=== PATIENT | male | born 1975 | race Caucasian/White ===

== ENCOUNTER 2016-06-24 22:12 | Inpatient (IN) ==
[2016-06-24] MEDS ORDERED: Nitroglycerin 1 INCH/GM PACKET TP SCH (23:45)
[2016-06-24] MEDS ORDERED: *HR* Heparin 5,000 UNIT/ML VIAL IVP ONE (23:47)
[2016-06-24] MEDS ORDERED: *HR* Heparin 5,000 UNIT/ML VIAL IVP PRN (23:47)
[2016-06-24] MEDS ORDERED: Naloxone 0.4 MG/ML INJ IVP PRN (23:47)
[2016-06-24] MEDS ORDERED: Ondansetron 4 MG/2 ML VIAL IVP PRN (23:47)
[2016-06-24] MEDS ORDERED: *HR* Morphine 2 MG/ML SYRINGE IVP PRN (23:47)
[2016-06-24] MEDS ORDERED: Acetaminophen 325 MG TABLET PO PRN (23:47)
[2016-06-25] MEDS: *HR* Metoprolol 5 MG/5 ML VIAL IVP SCH ×4 (00:07→17:15)
[2016-06-25] MEDS: 0.9 % Sodium Chloride 1,000 ML IVC SCH ×2 (00:07→11:26)
[2016-06-25] MEDS: Heparin 25,000 UNIT/500 ML D5W 25,000 UNIT/500 ML MLS IVC SCH (00:13)
[2016-06-25 01:04] LABS: Basophils # 0.1 K/mcL (0.0-0.2); Basophils % 1.1 %; Eosinophils # 0.2 K/mcL (0.0-0.6); Eosinophils % 2.2 %; Hematocrit 46.7 % (37.5-50.1); Hemoglobin 16.9 g/dL (12.9-16.9); Immature Granulocytes % 0.2 % (0-4); Lymphocytes % 29.1 %; Mean Corpuscular HGB Conc 36.2 g/dL (31.6-35.5); Mean Corpuscular Hemoglobin 33.7 pg (28.0-33.3); Mean Corpuscular Volume 93.2 fL (83.0-100.0); Mean Platelet Volume 10.7 fL (9.4-12.4); Monocytes # 0.5 K/mcL (0.0-1.3); Monocytes % 4.9 %; Neutrophils # 6.4 K/mcL (1.6-8.9); Platelet Count 183 K/mcL (140-400); Red Blood Count 5.01 M/mcL (4.19-5.50); Red Cell Distribution Width 11.8 % (11.5-14.5); Segmented Neutrophils % 62.5 %
[2016-06-25 01:10] LABS: INR 1.1; Prothrombin Time 11.4 Seconds (9.4-12.1)
[2016-06-25 01:18] LABS: BUN/Creatinine Ratio 8 (6-26); Blood Urea Nitrogen 6 mg/dL (8-26); Carbon Dioxide 22 mEq/L (19-29); Chloride 105 mEq/L (98-109); Glucose 153 mg/dL (70-99); Potassium 4.5 mEq/L (3.5-4.5); Sodium 139 mEq/L (136-145); eGFR For African Americans > 60 (> 60); eGFR For Non-African Americans > 60 (> 60)
[2016-06-25 01:19] LABS: Calcium 9.3 mg/dL (8.6-10.8); Magnesium 2.4 mg/dL (1.6-2.6); Osmolality,Calculated 289 (280-300)
[2016-06-25 01:27] LABS: Activated Partial Thrombo Time 141.7 Seconds (26.0-36.0)
[2016-06-25 02:02] LABS: Heparin anti-factor XA UFH 1.23 IU/mL (0.30-0.70)
--- NOTE | 2016-06-25 03:20 | Internal Med History&Physical ---
Date of Encounter: 06/25/16 Time of Encounter: 01:00 Assessment and Plan (1) Diabetes mellitus type II, non insulin dependent Current visit: Yes Status: Acute Insulin sliding scale. Fingersticks 4 times daily. Check hemoglobin A1c. Diabetic diet. (2) HTN (hypertension) Current visit: No Status: Acute We will treat him with IV metoprolol. Add HCTZ prior to discharge. Qualifiers: Hypertension type: essential hypertension Qualified Code(s): I10 - Essential (primary) hypertension (3) Non-STEMI (non-ST elevated myocardial infarction) Current visit: No Status: Acute Start heparin drip. 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 Repeat EKG. Order echocardiogram. Consult cardiology. Patient will be nothing by mouth for cardiac catheterization tomorrow. He is in a critical condition due to acute myocardial infarction threatening to cause sudden and significant impairment and circulatory function. I have performed 35 minutes of critical care which involved complex medical decision making to support and manipulate organ system function and prevent any further decline in respiratory and cardiovascular function. Critical care time excluding procedures and including evaluating the patient at bedside, ordering medications reevaluating patient after medication administration, reviewing the patient's medical records from outside facilities and ordering additional studies and consultations. (4) Tobacco abuse disorder Current visit: Yes Status: Acute I have advised smoking cessation. (5) DVT prophylaxis Current visit: Yes Status: Acute He is currently fully anticoagulated with IV heparin and does not require an additional prophylaxis at this time. Internal Medicine - H&P: HPI Chief complaint: chest pain Admitted From: Intrahospital Transfer Plans for Post Hospital Care: Home History of present illness: Mr. Perez is a 41 year old male with past medical history significant for hypertension and diabetes who presented to the hospital due to chest pain. He states that chest pain started early this morning at 8 AM while he was at rest. The pain was substernal graded as 8/10, pressure-like, the pain lasted for several hours. Denies any aggravating or alleviating factors. Denies any associated shortness of breath diaphoresis nausea or vomiting. He presented to [place] emergency department where he was given nitroglycerin and aspirin in pain subsided, currently 3/10. Initial troponin at [place] was 2.61. He was transferred to our hospital for further workup. A 10 point review of systems was negative except as above. Family history patient's father suffered with bladder cancer, patient's mother suffered with hypertension diabetes and heart disease Social history the patient is on Social Security. She smokes 2 packs of cigarettes a day and has smoked for the last 29 years. He drinks alcohol 2-3 times a month. Denies recreational drug use. Past Med Surg Social Fam HX - Past Medical History Medical history: diabetes, GERD, hyperlipidemia, hypertension, other Psychiatric history: no psych history - Social History Smoking Status: Current every day smoker Packs per day: 2 Alcohol use: occasionally Drug use: none - Family History Father Living Status: Hx Family Cancer: Yes (Bladder) Mother Living Status: Hx Family Cardiac Disorders: Yes Hx Family Endocrine Disorder: Yes Internal Medicine - H&P: Meds No Known Home Drugs 06/24/16 [History] Allergies No Known Allergies Allergy (Verified 06/24/16 20:35) All Systems PM: A 10-system review of systems was performed and is negative for pertinent findings except as documented above in the HPI. - Constitutional Vitals: Pulse Resp BP Pulse Ox 95 17 145/103 96 06/24/16 23:53 06/24/16 23:53 06/24/16 23:53 06/24/16 23:53 General appearance: Present: A&O X 3, no acute distress - Head Head exam: Present: atraumatic, normocephalic - Eye Eye exam: Present: PERRL, conjuntiva pink, sclera anicteric Pupils: Present: PERRL - Respiratory Respiratory exam: Present: CTAB. Absent: accessory muscle use, rales, rhonchi, wheezes - Cardiovascular Cardiovascular exam: Present: RRR, +S1, +S2. Absent: diastolic murmur, gallop, rubs, systolic murmur - GI/Abdominal GI/Abdominal exam: Present: normal bowel sounds, soft, no peritoneal signs. Absent: distended, tenderness - Extremities Exam Extremities exam: Present: warm, radial pulses palpable and symetrical. Absent : calf tenderness, cyanotic, pedal edema - Neurological Exam Neurological exam: Present: CN II-XII intact, oriented X3, no focal deficits. Absent: pronater drift, facial droop, speech deficit - Skin Skin exam: Present: dry, intact Internal Med - H&P Results - Labs CBC & Chem 7: 06/25/16 00:56 12/25/16 00:56 Labs: Short CBC 06/25/16 Range/Units 00:56 WBC 10.2 (4.3-11.1) K/mcL Hgb 16.9 (12.9-16.9) g/dL Hct 46.7 (37.5-50.1) % Plt Count 183 (140-400) K/mcL Neutrophils # 6.4 (1.6-8.9) K/mcL BMP 06/25/16 00:56 Sodium 139 Potassium 4.5 Chloride 105 Carbon Dioxide 22 BUN 6 L Creatinine 0.78 Glucose 153 H Calcium 9.3 Cardiac Enzymes 06/25/16 Range/Units 00:56 Troponin I 7.50 H* (0-0.03) ng/mL - EKG Data -: EKG Interpreted by Myself - EKG Data EKG comments: 06/25/16 03:21 EKG interpreted by myself shows normal sinus rhythm 74 bpm Q waves in leads 2, 3 and aVF consistent Old lacunar MRI. No ST or T-wave changes. Initial EKG from [facility] showed sinus tachycardia 1 14 bpm with similar Q waves in 2, 3 and aVF and flat T waves. - Impressions Chest x-ray from outside hospital shows no infiltrate effusion or vascular congestion. - VTE Reasons for not Prescribing Prophylaxis: Not indicated-Anticoagulated or INR therapeutic
[2016-06-25] MEDS ORDERED: Dextrose Gel 15 GM PO PRN ×2 (03:31)
[2016-06-25] MEDS ORDERED: D5% in Water 1,000 ML IV PRN (03:31)
[2016-06-25] MEDS ORDERED: *HR* Dextrose 50 % in Water (Syg) 50 ML SYRINGE IVP PRN (03:31)
[2016-06-25] MEDS: Insulin LISPRO 300 UNITS/3 ML VIAL SQ SCH ×3 (05:32→18:22)
[2016-06-25 06:49] LABS: Hemoglobin A1C 7.1 %
[2016-06-25] MEDS: *HR* Heparin 5,000 UNIT/ML VIAL IVP PRN ×2 (06:50→20:32)
[2016-06-25 06:55] LABS: BUN/Creatinine Ratio 8 (6-26); Blood Urea Nitrogen 6 mg/dL (8-26); Calcium 9.2 mg/dL (8.6-10.8); Carbon Dioxide 21 mEq/L (19-29); Chloride 106 mEq/L (98-109); Glucose 125 mg/dL (70-99); Magnesium 2.1 mg/dL (1.6-2.6); Osmolality,Calculated 289 (280-300); Potassium 4.1 mEq/L (3.5-4.5); Sodium 140 mEq/L (136-145); eGFR For African Americans > 60 (> 60); eGFR For Non-African Americans > 60 (> 60)
[2016-06-25 06:56] LABS: Albumin 3.9 g/dL (3.5-5.0); Albumin/Globulin Ratio 1.4 (1.1-2.2); Bilirubin,Direct 0.2 mg/dL (0.0-0.5); Bilirubin,Indirect 0.5 mg/dL (0.0-1.2); Bilirubin,Total 0.7 mg/dL (0.2-1.2); Globulin 2.8 g/dL (2.4-3.5); Total Protein 6.7 g/dL (6.0-8.3)
[2016-06-25 06:57] LABS: Chol/HDL Ratio 5.4 (0-4.9)
[2016-06-25 07:18] LABS: Thyroid Stimulating Hormone 0.597 mcIU/mL (0.350-4.840)
--- NOTE | 2016-06-25 08:05 | Cardiology Consult Note ---
Date of Encounter: 06/25/16 Time of Encounter: 07:00 Assessment and Plan (1) Non-STEMI (non-ST elevated myocardial infarction) Current Visit: Yes Status: Acute Per Cardiology: Troponin 2.61, 7.50, 9.06. Ischemic ECG changes. Chest pain free upon exam. Continue heparin gtt. Change asa to 81, change zocor to atorvastatin; start betablocker. Start brilinta 90 mg BID. Check echocardiogram. Recommend [facility]; alternatives, risks, and benefits discussed--patient agreeable to proceed. Will further discuss/review with Dr. Ng. (2) HTN (hypertension) Current Visit: Yes Status: Chronic Add betablocker for improved BP control. Continue ARB. Qualifiers: Hypertension type: essential hypertension Qualified Code(s): I10 - Essential (primary) hypertension (3) Tobacco abuse disorder Current Visit: Yes Status: Chronic Smoking cessation counseling provided. Discussion w patient/family: The assessment and plan as outlined above was discussed with the patient and/or family members who expressed understanding and agreement. All questions were answered. Thank you for involving us in the care of your patient. Please call with any questions. The patient will be discussed and reviewed with Dr. Ng; changes to be made accordingly. History of Present Illness Consult date: 06/25/16 Requesting physician: Gabe Rucker Consult reason: NSTEMI Chief complaint: Chest pressure History of present illness: Mr. Perez is a 41 year old male with PMH significant for DMII, HTN, HLD, and tobacco use who presented to [place] ED with complaints of chest pressure that started around 3:30 AM on 06/24/16. Reports chest pressure/heaviness woke up him from sleep, radiated across chest and through his back, pain lasted until he was given medication at the ED. Reports exertional chest pain for at least the last 6 months, improved/resolved with rest. Upon exam, he is chest pain free. Reports premature CAD in his mother. Past Med Surg Social Fam HX - Past Medical History Medical history: diabetes, GERD, hyperlipidemia, hypertension, other Psychiatric history: no psych history - Social History Smoking Status: Current every day smoker Packs per day: 2 Alcohol use: occasionally Drug use: none - Family History Father Living Status: Hx Family Cancer: Yes (Bladder) Mother Living Status: Still Living Hx Family Cardiac Disorders: Yes Hx Family Endocrine Disorder: Yes Medications and Allergies No Known Home Drugs 06/24/16 [History] Allergies No Known Allergies Allergy (Verified 06/24/16 20:35) All Systems Review: A 10-system review of systems was performed and is negative for pertinent findings except as documented above in the HPI. - Cardiovascular Cardiovascular: as per HPI Physical Examination Vital Signs, Last 4 Hours Temp Pulse Resp BP Pulse Ox 06/25/16 07:00 98.1 F 77 17 144/104 94 L General: Conversant, No Apparent Distress HEENT: Atraumatic, Normocephaly, Mucus Membranes Moist Neck: No JVD Cardiac: Reg Rate and Rhythm, Normal S1 and S2 Lungs: Other (Wheezes throughout) Neuro: Alert and responsive, No focal deficits noted Abdomen: Soft Skin: No rashes noted on visualized skin Musculoskeletal: No Chest Wall Tenderness Extremities: No Edema, Normal Pulses Results 06/25/16 00:56 06/25/16 05:50 Lab Results 06/25/16 06/25/16 06/25/16 00:56 00:56 00:56 WBC 10.2 Hgb 16.9 Hct 46.7 Plt Count 183 INR APTT Sodium 139 Potassium 4.5 Chloride 105 Carbon Dioxide 22 BUN 6 L Creatinine 0.78 Glucose 153 H Calcium 9.3 Magnesium 2.4 Total Bilirubin AST ALT Alkaline Phosphatase Troponin I B-Natriuretic Peptide 143 H TSH 06/25/16 06/25/16 06/25/16 00:56 00:56 05:50 WBC Hgb Hct Plt Count INR 1.1 APTT 141.7 H* D Sodium 140 Potassium 4.1 Chloride 106 Carbon Dioxide 21 BUN 6 L Creatinine 0.73 Glucose 125 H Calcium 9.2 Magnesium 2.1 Total Bilirubin AST ALT Alkaline Phosphatase Troponin I 7.50 H* B-Natriuretic Peptide TSH 06/25/16 06/25/16 06/25/16 05:50 05:50 05:50 WBC Hgb Hct Plt Count INR APTT 50.3 H D Sodium Potassium Chloride Carbon Dioxide BUN Creatinine Glucose Calcium Magnesium Total Bilirubin AST ALT Alkaline Phosphatase Troponin I 9.06 H* B-Natriuretic Peptide TSH 0.597 06/25/16 05:50 WBC Hgb Hct Plt Count INR APTT Sodium Potassium Chloride Carbon Dioxide BUN Creatinine Glucose Calcium Magnesium Total Bilirubin 0.7 AST 51 H ALT 24 Alkaline Phosphatase 97 Troponin I B-Natriuretic Peptide TSH Active Medications Acetaminophen (Tylenol) 650 mg PO Q6HR PRN PRN Reason: Mild Pain (1-3) Stop: 12/24/16 23:48 Aspirin (Aspirin) 162 mg PO DAILY ISAC Stop: 12/25/16 09:01 Last Admin: 06/25/16 08:01 Dose: 162 mg Dextrose/Water (Dextrose 50% (Syg)) 25 ml IVP AD PRN PRN Reason: Hypoglycemia Stop: 12/25/16 03:32 Heparin Sodium (Porcine) (Heparin) 4,000 unit IVP Q6HR PRN PRN Reason: SEE COMMENTS Stop: 12/24/16 23:48 Heparin Sodium (Porcine) (Heparin) 2,000 unit IVP Q6H PRN PRN Reason: SEE COMMENTS Stop: 12/24/16 23:48 Last Admin: 06/25/16 06:50 Dose: 2,000 unit Sodium Chloride (0.9 % Sodium Chloride) 1,000 mls @ 75 mls/hr IVC .[id number] ISAC Stop: 12/24/16 23:46 Last Admin: 06/25/16 00:07 Dose: 75 mls/hr Heparin Sodium/Dextrose (Heparin 25,000 Unit/500 Ml D5w) 25,000 unit in 500 mls @ 19.947 mls/hr IVC .Q24H ISAC; 10.9 UNIT/KG/HR PRN Reason: Protocol Stop: 12/24/16 23:46 Last Titration: 06/25/16 06:51 Dose: 9.78 unit/kg/hr, 17.9 mls/hr Dextrose (Dextrose 5%) 1,000 mls @ 100 mls/hr IV CONT PRN PRN Reason: HYPOGLYCEMIA Stop: 12/25/16 03:32 Insulin Human Lispro (Humalog) 0 units SQ Q6HR ISAC PRN Reason: Protocol Stop: 12/25/16 06:01 Last Admin: 06/25/16 05:32 Dose: Not Given Losartan Potassium (Cozaar) 50 mg PO DAILY ISAC PRN Reason: Protocol Stop: 12/25/16 09:01 Last Admin: 06/25/16 08:01 Dose: 50 mg Metoprolol Tartrate (Lopressor) 2.5 mg IVP Q6HR ISAC Stop: 12/25/16 00:01 Last Admin: 06/25/16 05:31 Dose: 2.5 mg Morphine Sulfate (Morphine Sulfate) 2 mg IVP Q4HR PRN PRN Reason: Severe Pain (7-10) Stop: 12/24/16 23:48 Naloxone HCl (Narcan) 0.4 mg IVP Q2MIN PRN PRN Reason: Opioid Reversal Stop: 12/24/16 23:48 Nitroglycerin (Nitroglycerin) 1 inch TP Q6HNTG ISAC Stop: 12/24/16 23:46 Ondansetron HCl (Zofran) 4 mg IVP Q8HR PRN PRN Reason: Nausea And Vomiting Stop: 12/24/16 23:48 Simvastatin (Zocor) 40 mg PO HS ISAC Stop: 12/25/16 21:01 - Imaging and Cardiology Echo: pending Other Results: 12 hour tele: avg HR=77 SR, no significant event noted. - EKG Interpretation EKG results cardiology: personally reviewed Consult Discharge Plan - Plan Referrals: Jorge Chaidez DO [Primary Care Provider] -
[2016-06-25 08:23] LABS: Basophils # 0.1 K/mcL (0.0-0.2); Basophils % 1.1 %; Eosinophils # 0.3 K/mcL (0.0-0.6); Eosinophils % 2.7 %; Hematocrit 45.2 % (37.5-50.1); Hemoglobin 16.2 g/dL (12.9-16.9); Immature Granulocytes % 0.2 % (0-4); Immature Platelets 6.9 % (1.1-6.1); Lymphocytes # 3.4 K/mcL (0.6-4.6); Lymphocytes % 35.7 %; Mean Corpuscular HGB Conc 35.8 g/dL (31.6-35.5); Mean Corpuscular Hemoglobin 33.5 pg (28.0-33.3); Mean Corpuscular Volume 93.6 fL (83.0-100.0); Mean Platelet Volume 11.2 fL (9.4-12.4); Monocytes # 0.6 K/mcL (0.0-1.3); Monocytes % 6.4 %; Neutrophils # 5.1 K/mcL (1.6-8.9); Platelet Count 164 K/mcL (140-400); Red Blood Count 4.83 M/mcL (4.19-5.50); Red Cell Distribution Width 11.8 % (11.5-14.5); Segmented Neutrophils % 53.9 %
[2016-06-25] MEDS ORDERED: Aspirin 81 MG TAB.CHEW PO SCH (09:00)
[2016-06-25] MEDS: *HR* Ticagrelor 90 MG TABLET PO SCH ×2 (11:26→20:24)
--- NOTE | 2016-06-25 11:31 | Event Note ---
Date of Encounter: 06/25/16 Time of Encounter: 11:21 41/M Brief PMH: Type 2 diabetes mellitus, hypertension, dyslipidemia, chronic tobacco smoker, mild obesity. Chief complaint: Chest pain present for less than 24 hours duration. 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 It was a pressure-like pain which lasted for several hours. Patient was complaining for off and on pain since this summer. Patient denies any nausea, vomiting, abdominal pain, diarrhea or any bloating sensation. Patient was evaluated at [facility] emergency room. It was noted that patient's troponin was 2.61 and that was the reason he was transferred to this hospital for further evaluation. At the time of examination patient is chest pain-free. Vitals: 98.1, 77/m,139/84, 97% on 2 L off and on nasal oxygen. On examination: I have examined this patient at bedside. Examination of his eyes, ears, oral cavity, cervical area does not show any abnormality. Examination of the lungs are benign. His heart rate is in 70s. I did not hear any gallop, rub or murmur. Examination of the abdomen is benign. 4 extremities examination is within normal limit. Patient is alert oriented 3. Brief neurological examination was within normal limit. I do not find any bruise or breakdown of the skin. Assessment and plan: Non-ST elevation myocardial infarction: -ASA -Beta mauricio -Brilinta -Statin. -ARB -Patient was evaluated by cardiology and he will be scheduled for left heart catheterization tomorrow in the morning. -Patient will be nothing by mouth from midnight. Diabetes mellitus: -We will manage his diabetes with the help of insulin. Hypertension: -We will continue present hypertensive therapy from home at this point. Rectal decision making: Patient is at risk of worsening cardiac function in spite of being on appropriate medication.
[2016-06-26] MEDS: 0.9 % Sodium Chloride 1,000 ML IVC SCH ×2 (00:48→17:57)
[2016-06-26] MEDS: Heparin 25,000 UNIT/500 ML D5W 25,000 UNIT/500 ML MLS IVC SCH ×2 (00:50→21:00)
[2016-06-26] MEDS: *HR* Metoprolol 5 MG/5 ML VIAL IVP SCH ×4 (00:53→17:58)
[2016-06-26] MEDS: Insulin LISPRO 300 UNITS/3 ML VIAL SQ SCH ×5 (00:53→21:01)
[2016-06-26 01:34] LABS: Basophils # 0.1 K/mcL (0.0-0.2); Basophils % 0.9 %; Eosinophils # 0.3 K/mcL (0.0-0.6); Eosinophils % 3.8 %; Hematocrit 43.7 % (37.5-50.1); Hemoglobin 15.7 g/dL (12.9-16.9); Immature Granulocytes % 0.1 % (0-4); Immature Platelets 6.3 % (1.1-6.1); Lymphocytes # 2.8 K/mcL (0.6-4.6); Lymphocytes % 40.1 %; Mean Corpuscular HGB Conc 35.9 g/dL (31.6-35.5); Mean Corpuscular Hemoglobin 33.8 pg (28.0-33.3); Mean Platelet Volume 10.8 fL (9.4-12.4); Monocytes # 0.4 K/mcL (0.0-1.3); Monocytes % 5.1 %; Neutrophils # 3.4 K/mcL (1.6-8.9); Platelet Count 158 K/mcL (140-400); Red Blood Count 4.65 M/mcL (4.19-5.50); Red Cell Distribution Width 11.8 % (11.5-14.5)
[2016-06-26 01:46] LABS: Alanine Aminotransferase 19 Units/L (0-55); Albumin 3.4 g/dL (3.5-5.0); Albumin/Globulin Ratio 1.3 (1.1-2.2); Alkaline Phosphatase 83 Units/L (38-126); Aspartate Amino Transferase 23 Units/L (5-34); BUN/Creatinine Ratio 9 (6-26); Bilirubin,Total 0.9 mg/dL (0.2-1.2); Blood Urea Nitrogen 7 mg/dL (8-26); Carbon Dioxide 22 mEq/L (19-29); Chloride 109 mEq/L (98-109); Globulin 2.7 g/dL (2.4-3.5); Glucose 142 mg/dL (70-99); Osmolality,Calculated 286 (280-300); Potassium 4.1 mEq/L (3.5-4.5); Sodium 138 mEq/L (136-145); Total Protein 6.1 g/dL (6.0-8.3); eGFR For African Americans > 60 (> 60); eGFR For Non-African Americans > 60 (> 60)
[2016-06-26] MEDS: *HR* Heparin 5,000 UNIT/ML VIAL IVP PRN ×2 (03:33→15:47)
[2016-06-26] MEDS ORDERED: Verapamil 5 MG/2 ML VIAL ONE (08:43)
[2016-06-26] MEDS ORDERED: 0.9 % Sodium Chloride 1,000 ML ONE ×2 (08:43→09:57)
[2016-06-26] MEDS ORDERED: Nitroglycerin 1,000 MCG/10 ML VIAL IV ONE (08:43)
[2016-06-26] MEDS ORDERED: *HR* Heparin 10,000 UNIT/10 ML VIAL ONE (08:43)
[2016-06-26] MEDS ORDERED: Heparin 1,000 UNITS/500 mL NS 500 ML ONE (08:43)
--- NOTE | 2016-06-26 09:02 | Internal Med Progress Note ---
<Leonel Jarvis - Last Filed: 06/26/16 09:00> Date of Encounter: 06/26/16 Time of Encounter: 08:35 - Assessment and plan (1) Non-STEMI (non-ST elevated myocardial infarction) Current Visit: Yes Status: Acute Assessment and plan: Troponin 2.61, 7.50, 9.06. [facility] today aroud noon time. patient without angina. cardiology for recommendations ongoing aspirin, brillinta, heparin gtt, NTG. (2) Diabetes mellitus type II, non insulin dependent Current Visit: Yes Status: Acute Assessment and plan: bs good. holding ssi (3) HTN (hypertension) Current Visit: Yes Status: Chronic Assessment and plan: betablocker and arb Qualifiers: Hypertension type: essential hypertension Qualified Code(s): I10 - Essential (primary) hypertension (4) Tobacco abuse disorder Current Visit: Yes Status: Chronic Assessment and plan: smoking cessation counseling provided. patient amenable to nicotine patches. (5) DVT prophylaxis Current Visit: Yes Status: Acute Assessment and plan: heparin gtt - Time Spent With Patient 25 - 35 minutes - Subjective Interval history: patient denies chest pains, shortness of breath. has resolved since he came in on sunday evening. denies f/n/v/d/chills. ready for heart cath today. - Constitutional Vitals: Temp Pulse Resp BP Pulse Ox 98.4 F 73 17 142/113 93 L 06/26/16 06:51 06/26/16 06:51 06/26/16 06:51 06/26/16 06:51 06/26/16 06:51 General appearance: Present: A&O X 3, no acute distress - Head Head exam: Present: atraumatic, normocephalic - Eye Eye exam: Present: PERRL, conjuntiva pink, sclera anicteric Pupils: Present: PERRL - Neck Neck exam general surgery: Present: supple, trachea midline. Absent: lymphadenopathy - Respiratory Respiratory exam: Present: rhonchi (bilateral dry rhonchi). Absent: accessory muscle use, rales, wheezes - Cardiovascular Cardiovascular exam: Present: RRR, +S1, +S2. Absent: gallop, rubs - GI/Abdominal GI/Abdominal exam: Present: normal bowel sounds, soft, no peritoneal signs. Absent: distended, tenderness - Extremities Exam Extremities exam: Present: warm, radial pulses palpable and symetrical. Absent : calf tenderness, cyanotic, pedal edema - Neurological Exam Neurological exam: Present: CN II-XII intact, oriented X3, no focal deficits. Absent: pronater drift, facial droop, speech deficit - Skin Skin exam: Present: dry, intact Internal Medicine: Result - Labs CBC & Chem 7: 06/26/16 01:26 06/26/16 01:26 Labs: Short CBC 06/26/16 Range/Units 01:26 WBC 6.9 (4.3-11.1) K/mcL Hgb 15.7 (12.9-16.9) g/dL Hct 43.7 (37.5-50.1) % Plt Count 158 (140-400) K/mcL Neutrophils # 3.4 (1.6-8.9) K/mcL BMP 06/26/16 01:26 Sodium 138 Potassium 4.1 Chloride 109 Carbon Dioxide 22 BUN 7 L Creatinine 0.77 Glucose 142 H Calcium 9.0 Liver Function 06/26/16 Range/Units 01:26 Total Bilirubin 0.9 (0.2-1.2) mg/dL AST 23 (5-34) Units/L ALT 19 (0-55) Units/L Alkaline Phosphatase 83 (38-126) Units/L Albumin 3.4 L (3.5-5.0) g/dL - ABG Interpretation ABG results: PT/INR, D-dimer PT 11.4 Seconds (9.4-12.1) 06/25/16 00:56 - VTE Reasons for not Prescribing Prophylaxis: Not indicated-Anticoagulated or INR therapeutic Consult Discharge Plan - Plan Referrals: Jorge Chaidez DO [Primary Care Provider] - <Rolando Jang - Last Filed: 06/26/16 18:04> - Constitutional Vitals: Temp Pulse Resp BP Pulse Ox 97.7 F 71 14 143/108 93 L 06/26/16 15:06 06/26/16 15:06 06/26/16 15:06 06/26/16 15:06 06/26/16 15:06 Internal Medicine: Result - Labs CBC & Chem 7: 06/26/16 01:26 06/26/16 01:26 Labs: Short CBC 06/26/16 Range/Units 01:26 WBC 6.9 (4.3-11.1) K/mcL Hgb 15.7 (12.9-16.9) g/dL Hct 43.7 (37.5-50.1) % Plt Count 158 (140-400) K/mcL Neutrophils # 3.4 (1.6-8.9) K/mcL BMP 06/26/16 01:26 Sodium 138 Potassium 4.1 Chloride 109 Carbon Dioxide 22 BUN 7 L Creatinine 0.77 Glucose 142 H Calcium 9.0 Liver Function 06/26/16 Range/Units 01:26 Total Bilirubin 0.9 (0.2-1.2) mg/dL AST 23 (5-34) Units/L ALT 19 (0-55) Units/L Alkaline Phosphatase 83 (38-126) Units/L Albumin 3.4 L (3.5-5.0) g/dL - ABG Interpretation ABG results: PT/INR, D-dimer PT 11.4 Seconds (9.4-12.1) 06/25/16 00:56 - Attending Attestation I examined this patient and my medical decision-making was reviewed with the JET INSPECTOR/PA/Advanced Practice Nurse/Resident Physician. I agree with the documented findings, disposition and treatment plan as described except to the extent set forth below. Young male. Very noncompliant with the medication. Admitted with chest pain. Persistently rising troponin. Underwent left heart catheterization. Found to have triple-vessel disease. Cardiothoracic surgery on the board. We will follow their recommendation.
--- NOTE | 2016-06-26 09:24 | Pre-Sedation Evaluation ---
Pre-sedation evaluation - Pre-sedation checklist Date of procedure: 06/26/16 Procedure: left heart cath Recent Vitals: Last Vital Signs Temp 98.4 F 06/26/16 06:51 Pulse 73 06/26/16 06:51 Resp 17 06/26/16 06:51 BP 142/113 06/26/16 06:51 Pulse Ox 93 L 06/26/16 06:51 H&P (including ROS) documented in medical record: Yes Previous reaction to sedatives/anesthetics: Unknown Dietary Status: NPO after Midnight Dentition: No loose teeth or bridges ASA Classification *see protocol: CLASS II-Mild systemic disease Plan of Care: Pt appropriate candidate for procedure/moderate/conscious sedation , Risks/benefits of procedure/sedation discussed w/ patient/family
[2016-06-26] MEDS ORDERED: *HR* FentaNYL (PF) 100 MCG/2 ML VIAL ONE (09:52)
[2016-06-26] MEDS ORDERED: *HR* Midazolam HCl 5 MG/5 ML VIAL IVP ONE (09:53)
[2016-06-26] MEDS ORDERED: *HR* Adenosine 6 MG/2 ML VIAL IVP ONE (10:26)
[2016-06-26] MEDS: Aspirin 81 MG TAB.CHEW PO SCH (11:31)
[2016-06-26] MEDS: *HR* Ticagrelor 90 MG TABLET PO SCH (11:32)
--- NOTE | 2016-06-26 11:40 | Electrocardiograph Report ---
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
--- NOTE | 2016-06-26 12:49 | Invasive Diagnostic Lab Proc ---
Name: Victoriano Perez Date of Study: 06/26/2016 Date: 1975 Ht: 68.1in Medical Record#: [id number] Age: 41 Wt: 200.62lb Gender: Male BSA: 2.05 Order #: [id number] BMI: 30.41 Physicians Procedure Physician: Stepan Ng MD, FACC Referring MD: Jorge Chaidez DO Referring MD: Staff Name Position Time In Dimitrios Conti RN Monitor 09:57 AM Marcia Palacio RN Volcanologist 09:57 AM Maggie Leong RT Scrub 09:57 AM Indications Indication Non-Stemi Procedures Performed Procedure L HRT ARTERY/VENTRICLE ANGIO IV Doppler BLD Flow 1st Vessel IV Doppler BLD Flow Ad'l Vessel Pre-Procedure Checklist Informed consent is complete signed and on chart. H\\T\\P is on chart. ID band is on and ID verified with patient. Patient NPO for procedure The procedure was described for the patient and questions were answered. Blood Pressure: 142/113 ECG is on chart. Rhythm: NSR Plan of Care Patient will tolerate the procedure without complications. Adequate level of comfort will be maintained. Hemodynamics will remain stable Patient will recover from procedure without complications. Respiratory function will be maintained. Cardiac rhythm will remain stable. Patient temperature will be maintained. Patient and/or family have verbalized understanding of the procedure. Patient Education Chief Complaint/Reason for Test: Cardiac Cath Developmental Category: Adult (18-64 years) Developmentally Appropriate for Age: Yes Learning Barriers: None Education Needs: Procedure Education Method: Verbal Information Taught: Cardiac Cath Educational Evaluation: Able to repeat information Intravenous Access Time IV Size Location DC'd Fluid/Drip Rate Units RN 09:49 AM 18g 1 1/4" Patent On Arrival Rt Antecubital 0.9NaCl 25 ml/hr Dimitrios Conti RN Allergies No Known Allergies Vital Signs Time BP (mmHg) HR (bpm) O2 Sat. RR (bpm) LOC 09:51 AM 142 / 113 73 93 % 17 5 = Fully awake and oriented or at pre-proc level 10:08 AM / % 5 = Fully awake and oriented or at pre-proc level 10:08 AM / % 5 = Fully awake and oriented or at pre-proc level 10:23 AM / % 5 = Fully awake and oriented or at pre-proc level 10:39 AM / % 5 = Fully awake and oriented or at pre-proc level 10:04 AM 181 / 119 70 96 % 8 10:08 AM 154 / 97 76 95 % 13 10:13 AM 137 / 89 71 94 % 17 10:18 AM 144 / 102 86 92 % 20 10:24 AM 161 / 95 75 94 % 17 10:28 AM 147 / 98 71 93 % 10:33 AM 147 / 86 78 92 % 18 10:39 AM 147 / 81 75 95 % 15 10:43 AM 141 / 94 67 94 % 12 10:48 AM 152 / 102 67 94 % 8 10:54 AM 152 / 103 64 94 % 16 Procedural Medications Time Medication Dose Units Method Given By 10:06 AM Fentanyl 50 mcg Intravenous Marcia Palacio RN 10:06 AM Versed 2 mg Intravenous HakeemMarcia banks RN 10:15 AM Lidocaine 2% 0.5 ml Subcutaneous Stepan Ng MD, FACC 10:15 AM Versed 1 mg Intravenous Marcia Palacio RN 10:15 AM Fentanyl 25 mcg Intravenous Marcia Palacio RN 10:16 AM Heparin 0 units Nitroglycerin 200 mcg Verapamil 2.5 mg Intraarterial Stepan Ng MD, FACC 10:20 AM Oxygen 4 L/min nasal cannula Marcia Palacio RN 10:32 AM Heparin 3000 units Intravenous Marcia Palacio RN 10:34 AM Adenosine 400 mcg Intracoronary Stepan Ng MD, FACC 10:38 AM Adenosine 400 mcg Intracoronary Stepan Ng MD, FACC 10:39 AM Adenosine 400 mcg Intracoronary Stepan Ng MD, FACC 10:40 AM Adenosine 400 mcg Intracoronary Stepan Ng MD, FACC 10:42 AM Adenosine 600 mcg Intracoronary Stepan Ng MD, FACC 10:43 AM Adenosine 600 mcg Intracoronary Stepan Ng MD, FACC 10:46 AM Adenosine 300 mcg Intracoronary Stepan Ng MD, FACC ASA Classification: CLASS II- Mild systemic disease (i.e. well-controlled diabetes, hypertension, asthma, cigarette smoking) Jeffry Score Preprocedure Postprocedure Activity 2- Moves 4 extremities sustained head lift Activity 2- Moves 4 extremities sustained head lift Circulation 2- SBP +/= 20 points of pre-anesthetic level Circulation 2- SBP +/= 20 points of pre-anesthetic level Consciousness 2- Awake and alert oriented x 3 Consciousness 2- Awake and alert oriented x 3 O2 Saturation 2- Able to maintain O2 satruation of 92% on room air O2 Saturation 2- Able to maintain O2 satruation of 92% on room air Respiratory 2- Able to deep breathe and cough well Respiratory 2- Able to deep breathe and cough well Total Score 10 Total Score 10 Contrast Agent: Isovue Diagnostic Contrast: 127 ml Total Contrast: 127 ml Fluoro Dose: 489 mGy Activated Clotting Time Time Seconds to Clot 10:32 AM 167 Procedure Log Time Note Enter By 09:46 AM CathStat 09:48 AM ASA Class CLASS II- Mild systemic disease (i.e. well-controlled diabetes, hypertension, asthma, cigarette smoking) csmith 09:57 AM Pt arrived to tag and label cutter 2 at 09:57 csmith 09:57 AM Patient charges- Angio tray pack, Navilyst 3mm J, Pulse Oximetry and ACIST tubing and transducer csmith 09:57 AM IV Supplies used: J loop Angio Cath. csmith 09:57 AM Physician arrived 09:57 csmith 09:57 AM Meet and greet completed csmith 09:57 AM Sign in performed according to hospital policy. csmith 09:57 AM Procedure start 09:57 csmith 09:57 AM Case Start 09:57 AM Dimitrios Conti RN Position: Monitor Time in: 09:57 csmith 09:57 AM Marcia Palacio RN Position: Volcanologist Time in: 09:57 csmith 09:57 AM Maggie Leong Position: Scrub Time in: 09:57 csmith 10:03 AM Vitals capture started with the following parameters, Patient=Adult, Interval=5 min, Initial Jncekgkj=025 mmHg, Deflation Rate=5 mmHg, Cuff placed on Right Arm 10:04 AM HR=70 bpm, CHFB=401/119 mmhg, SpO2=96.0 %, Resp=8 B/min, Comment=sr 10:08 AM Time: 10:06 Fentanyl 50 mcg Intravenous [facility] 10[facility]08 AM Time: 10:06 Versed 2 mg Intravenous Given by Marcia Palacio RN [facility] 10:08 AM Time: 10:08 Patient comfortable and pain free: Yes csmith 10:08 AM Time: 10:08LOC: 5 = Fully awake and oriented or at pre-proc level csmith 10:08 AM Hair removed from procedure site in procedure lab using clippers. Right wrist \\T\\ right groin prepped with Chloraprep by Dimitrios Conti RN then patient draped. Skin intact. csmith 10:08 AM HR=76 bpm, SOPD=799/97 mmhg, SpO2=95.0 %, Resp=13 B/min, Comment=sr 10:09 AM Recorded ECG: HR=77 Condition=Condition 1 10:13 AM Pressure channel 1 zeroed. 10:13 AM HR=71 bpm, XCJO=400/89 mmhg, SpO2=94.0 %, Resp=17 B/min, Comment=sr 10:15 AM Time out performed according to hospital policy csmith 10:15 AM Time: 10:15 0.5 ml Lidocaine 2% to right radial Subcutaneous Given by Stepan Ng MD, [facility] csmith 10:15 AM Time: 10:15 Versed 1 mg Intravenous Given by Toro csmith 10:15 AM Time: 10:15 Fentanyl 25 mcg Intravenous Given by Marcia Palacio RN csmith 10:16 AM Access obtained by percutaneous puncture. 5/6Fr 10cm Terumo Glidesheath sheath placed in right Radial artery. [id number] csmith 10:16 AM Time: 10:16 Patient given 0 units Heparin, 200 mcg Nitroglycerin, and 2.5 mg Verapamil Intraarterial by Stepan Ng MD, [facility] csmith 10:17 AM 5Fr TIG catheter inserted over the wire [facility] csmith 10:17 AM 0.035 260cm Navilyst 3mmJ wire [id number] csmith 10:18 AM HR=86 bpm, ALBR=192/102 mmhg, SpO2=92.0 %, Resp=20 B/min, Comment=sr 10:19 AM LCA angiography performed in multiple views. csmith 10:19 AM Recorded Pressure: Ao, HR=85, Condition=Condition 1 (Aorta) Ao 119/96/107 10:20 AM Coronary Dominance: right csmith 10:20 AM Lesion found in Proximal LAD. Pre Stenosis: 50 Pre VIK Flow: csmith 10:20 AM Lesion found in Distal LAD. Pre Stenosis: 100 Pre VIK Flow: csmith 10:20 AM Lesion found in 1st Diagonal. Pre Stenosis: 50 Pre VIK Flow: csmith 10:20 AM RCA angiography performed in multiple views. csmith 10:21 AM Time: 10:20 Oxygen on at 4 L/min per nasal cannula by Marcia Palacio RN csmith 10:21 AM Coronary Dominance: right csmith 10:23 AM Lesion found in 1st LPL. Pre Stenosis: 100 Pre VIK Flow: csmith 10:23 AM Time: 10:08LOC: 5 = Fully awake and oriented or at pre-proc level csmith 10:23 AM Time: 10:08 Patient comfortable and pain free: Yes csmith 10:23 AM Lesion found in Proximal RCA. Pre Stenosis: 80 Pre VIK Flow: csmith 10:24 AM Lesion found in Mid RCA. Pre Stenosis: 90 Pre VIK Flow: csmith 10:24 AM Lesion found in Distal RCA. Pre Stenosis: 90 Pre VIK Flow: csmith 10:24 AM Catheter removed csmith 10:24 AM HR=75 bpm, CAMA=716/95 mmhg, SpO2=94.0 %, Resp=17 B/min, Comment=sr 10:24 AM Pressure channel 1 zero failed. 10:24 AM Pressure channel 1 zero failed. 10:24 AM Pressure channel 1 zeroed. 10:25 AM Recorded Pressure: LV, HR=73, Condition=Condition 1 (Left Ventricle) LV 147/11/21 10:25 AM 5Fr Pigtail catheter inserted over the wire DNC csmith 10:25 AM Bolus angiogram of left Ventricle complete: 10 ml/sec for a total of 25 mls csmith 10:26 AM Recorded Pressure: LV, Ao, HR=76, Condition=Condition 1 (Left Ventricle) LV 150/14/23, (Aorta) Ao 141/100/119 10:26 AM Pressure channel 3 zeroed. 10:26 AM Catheter removed csmith 10:27 AM 6Fr RBL 3.5 Convey guide catheter was used to cannulate the PCI vessel successfully. reused? No csmith 10:27 AM [place] Prime Wire Prestige advanced to target lesion. csmith 10:28 AM HR=71 bpm, ZLKO=119/98 mmhg, SpO2=93 % 10:32 AM At 10:32 the ACT was 167 seconds. csmith 10:32 AM Pressure channel 3 equalized to channel 1. 10:33 AM Time: 10:32 Heparin 3000 units Intravenous Given by Marcia Palacio RN Taylor pump csmith 10:33 AM Pressure channel 3 equalized to channel 1. 10:33 AM FFR advanced to LAD csmith 10:33 AM HR=78 bpm, ZZVH=901/86 mmhg, SpO2=92 %, Resp=18 B/min 10:35 AM FFR: Value=0.96, Condition=Condition 1, Device=VOLCANO PRIME WIRE 10:35 AM Recorded Pressure: Ao, Wire, FFR=0.96, HR=89, Condition=Condition 1 (Aorta) Ao 162/117/136, (FFR Wire) Wire 164/108/132 10:36 AM Time: 10:34 Adenosine 400 mcg administered Intracoronary by Stepan Ng MD, [facility] csmith 10:36 AM FFR Measurement: 0.96 lAD csmith 10:37 AM Recorded Pressure: Ao, Wire, FFR=1.00, HR=82, Condition=Condition 1 (Aorta) Ao 169/116/139, (FFR Wire) Wire 174/117/141 10:37 AM FFR: Value=1.00, Condition=Condition 1, Device=VOLCANO PRIME WIRE 10:37 AM [ Incomplete Pressure Recording ] 10:37 AM [ Incomplete Pressure Recording ] 10:38 AM [ Incomplete Pressure Recording ] 10:38 AM Pressure channel 3 equalized to channel 1. 10:38 AM Time: 10:38 Adenosine 400 mcg administered Intracoronary by Stepan Ng MD, [facility] csmith 10:38 AM FFR Measurement: 1 circ csmith 10:38 AM FFR: Value=0.88, Condition=Condition 1, Device=VOLCANO PRIME WIRE 10:38 AM Recorded Pressure: Ao, Wire, FFR=0.88, HR=72, Condition=Condition 1 (Aorta) Ao 141/92/113, (FFR Wire) Wire 131/81/101 10:39 AM HR=75 bpm, XFSE=505/81 mmhg, SpO2=95.0 %, Resp=15 B/min, Comment=sr 10:39 AM Time: 10:23 Patient comfortable and pain free: Yes csmith 10:39 AM Time: 10:23LOC: 5 = Fully awake and oriented or at pre-proc level csmith 10:39 AM FFR Measurement: 0.88 circ csmith 10:39 AM Time: 10:39 Adenosine 400 mcg administered Intracoronary by Stepan Ng MD, [facility] csmith 10:40 AM Time: 10:40 Adenosine 400 mcg administered Intracoronary by Stepan Ng MD, [facility] csmith 10:40 AM Recorded Pressure: Ao, Wire, FFR=0.82, HR=72, Condition=Condition 1 (Aorta) Ao 123/82/100, (FFR Wire) Wire 115/64/83 10:40 AM FFR: Value=0.82, Condition=Condition 1, Device=VOLCANO PRIME WIRE 10:41 AM FFR Measurement: 0.82 LAD csmith 10:42 AM Lesion found in Mid Circumflex. Pre Stenosis: 60 Pre VIK Flow: csmith 10:42 AM Recorded Pressure: Ao, Wire, FFR=0.80, HR=69, Condition=Condition 1 (Aorta) Ao 144/93/113, (FFR Wire) Wire 131/72/93 10:42 AM FFR: Value=0.80, Condition=Condition 1, Device=VOLCANO PRIME WIRE 10:42 AM Time: 10:42 Adenosine 600 mcg administered Intracoronary by Stepan Ng MD, [facility] csmith 10:43 AM FFR Measurement: 0.8 csmith 10:43 AM HR=67 bpm, WEVH=308/94 mmhg, SpO2=94.0 %, Resp=12 B/min, Comment=sr 10:44 AM Time: 10:43 Adenosine 600 mcg administered Intracoronary by Stepan Ng MD, [facility] csmith 10:44 AM Recorded Pressure: Ao, Wire, FFR=0.81, HR=78, Condition=Condition 1 (Aorta) Ao 172/114/138, (FFR Wire) Wire 154/90/117 10:44 AM FFR: Value=0.81, Condition=Condition 1, Device=VOLCANO PRIME WIRE 10:44 AM FFR Measurement: 0.81 csmith 10:46 AM FFR: Value=0.71, Condition=Condition 1, Device=VOLCANO PRIME WIRE 10:46 AM Recorded Pressure: Ao, Wire, FFR=0.71, HR=65, Condition=Condition 1 (Aorta) Ao 146/98/118, (FFR Wire) Wire 126/60/85 10:46 AM Time: 10:46 Adenosine 300 mcg administered Intracoronary by Stepan Ng MD, [facility] csmith 10:47 AM FFR Measurement: 0.71 circ csmith 10:48 AM Flow Wire removed intact csmith 10:48 AM HR=67 bpm, JDXI=193/102 mmhg, SpO2=94.0 %, Resp=8 B/min, Comment=sr 10:50 AM Catheter removed csmith 10:50 AM Wire removed csmith 10:50 AM Procedure completed at 10:50 csmith 10:51 AM Sign out completed: Radiation Dose 489 mGy Fluoro Time: 6.3 Isovue 370 - 200ml contrast 127 ml given by Stepan Ng MD, [facility]. Complications: NoneConfirmed administered medications: Yes csmith 10:51 AM Isovue 370 - 200ml,1 Bottle(s) used. csmith 10:51 AM Arterial sheath pulled, Vasc Band closure device used and was Successful S/N. csmith 10:51 AM 12 ml air in Vasc Band. csmith 10:52 AM Post ECG NSR csmith 10:52 AM Post Blood Pressure 152/102 csmith 10:52 AM 10:52 Post Pulses Right radial 1+ csmith 10:53 AM Information taught Cardiac Cath and Vasc Band csmith 10:53 AM Education needs Responsibilities of Patient in Care csmith 10:53 AM Learning barriers :None csmith 10:53 AM Education Methods Verbal csmith 10:53 AM Education evaluation Able to repeat information csmith 10:53 AM Site status No bleeding/hematoma - Rt Wrist as reported by Maggie Leong RT at 10:53 csmith 10:53 AM Plavix, Effient or Brilinta given No csmith 10:54 AM HR=64 bpm, WYBE=662/103 mmhg, SpO2=94.0 %, Resp=16 B/min, Comment=sr 10:54 AM Time: 10:39LOC: 5 = Fully awake and oriented or at pre-proc level csmith 10:54 AM Time: 10:39 Patient comfortable and pain free: Yes csmith 10:54 AM Family placed in consult room. csmith 10:54 AM Arya Preston in OR [address] notified of consult for Dr[address] Elmore (CABG/TVD) csmith 11:01 AM Patient out of room: 11:01 [facility] Complications Complication None Hemodynamics Pressures Site Systolic/A Wave Diastolic/V Wave Mean AO 119 96 107 LV 147 11 21 LV 150 14 23 AO 141 100 119 AO 162 117 136 Wire 164 108 132 AO 169 116 139 Wire 174 117 141 AO 141 92 113 Wire 131 81 101 AO 123 82 100 Wire 115 64 83 AO 144 93 113 Wire 131 72 93 AO 172 114 138 Wire 154 90 117 AO 146 98 118 Wire 126 60 85 Post Procedure Information Blood Pressure: 152/102 mmHg Rhythm: NSR Post procedural instructions were given Surgery consult for CABG Closure Device Time Device Success/Fail Mechanical Compression Successful Site Checks Time Location Status Staff Sheath In? Note 10:53 AM Rt Wrist No bleeding/hematoma Maggie Leong RT Pulses Time Site Pre-Procedure Post-Procedure Note 06/26/2016 9:50:00 AM Bilateral DP 2+ 06/26/2016 9:50:00 AM Bilateral radial 2+ 10:52:00 AM Right radial 1+ Updated by Dimitrios Conti RN on 06/26/2016 12:43:10 PM electronically signed on 06/26/2016 12:43:33 PM with status of Final
--- NOTE | 2016-06-26 16:04 | Cardiothoracic Consult Note ---
Date of Encounter: 06/26/16 Time of Encounter: 16:01 Assessment and Plan (1) Non-STEMI (non-ST elevated myocardial infarction) Current Visit: Yes Status: Acute The assessment and plan as outlined above was discussed with the patient and/or family members who expressed understanding and agreement. All questions were answered. The patient has triple-vessel disease with decreased ventricular function and an ejection fraction of 40%. He does have bypassable vessels and is a good candidate for open heart surgery. The patient did receive Brilinta yesterday and we will need to wait 5-7 days prior to his open heart surgery. He should be maintained on a heparin drip until that time. The procedure, its risks benefits and alternatives were explained to the patient and his family and they do wish to proceed. His open heart surgery should be early next week. At this point, they have no questions. - History of Present Illness Consult date: 06/26/16 History of present illness: Mr. Perez is a 41 year old male History of present illness. Patient is a 41-year-old gentleman who presented with an acute myocardial infarction with a troponin of 7.5. He states that he has been having angina for a long time with exertion. No previous history of myocardial infarction. Cardiac catheterization done today did reveal decreased ventricular function with an ejection fraction of 40%. In addition, he has triple-vessel disease with bypassable vessels. Past medical history is notable for hypertension. He has diabetes on oral agents. He has hypercholesterolemia. He has asthma and occasionally uses inhalers. No known allergies. Social history. He lives near [place]. 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 He smokes 2 packs of cigarettes per day. Drinks occasional beers. Family history is positive for coronary artery disease. Review of systems is negative for stroke or TIA. Past Med Surg Social Fam HX - Past Medical History Medical history: diabetes, GERD, hyperlipidemia, hypertension, other Psychiatric history: no psych history - Social History Smoking Status: Current every day smoker Packs per day: 2 Alcohol use: occasionally Drug use: none - Family History Father Living Status: Hx Family Cancer: Yes (Bladder) Mother Living Status: Still Living Hx Family Cardiac Disorders: Yes Hx Family Endocrine Disorder: Yes Medications and Allergies Acetaminophen [Tylenol] 500 mg PO Q6HR PRN 06/25/16 [History] Allergies No Known Allergies Allergy (Verified 06/24/16 20:35) All Systems Review: A 10-system review of systems was performed and is negative for pertinent findings except as documented above in the HPI. Physical Examination Vital Signs, Last 4 Hours Temp Pulse Resp BP Pulse Ox 06/26/16 15:06 97.7 F 71 14 143/108 93 L 06/26/16 13:43 81 18 123/88 92 L 06/26/16 12:10 81 18 141/98 Pupils are equal, round and reactive to light and accommodation. His teeth are in poor repair. Neck is supple. Trachea in the midline. No thyromegaly or carotid bruits. Lungs are clear to percussion and auscultation. Heart is in a regular rate and rhythm. No murmurs, gallops or rubs. Abdomen is benign. No tenderness, rebound or guarding. No hepatosplenomegaly or masses. Extremities without edema. 1+ pulses. No saphenous vein varicosities or strippings. Cranial nerves, motor and sensory intact. He is awake, alert and oriented 3. Results 06/26/16 01:26 06/26/16 01:26 Lab Results, Last 24 hours 06/25/16 06/26/16 06/26/16 19:51 01:26 01:26 WBC 6.9 Hgb 15.7 Hct 43.7 Plt Count 158 APTT 49.0 H Sodium 138 Potassium 4.1 Chloride 109 Carbon Dioxide 22 BUN 7 L Creatinine 0.77 Glucose 142 H Calcium 9.0 Total Bilirubin 0.9 AST 23 ALT 19 Alkaline Phosphatase 83 06/26/16 06/26/16 06/26/16 01:26 07:01 14:44 WBC Hgb Hct Plt Count APTT 54.2 H 61.9 H 42.0 H Sodium Potassium Chloride Carbon Dioxide BUN Creatinine Glucose Calcium Total Bilirubin AST ALT Alkaline Phosphatase Consult Discharge Plan - Plan Referrals: Jorge Chaidez DO [Primary Care Provider] -
[2016-06-26] MEDS ORDERED: Insulin LISPRO 300 UNITS/3 ML VIAL SQ SCH (17:00)
[2016-06-27] MEDS: *HR* Metoprolol 5 MG/5 ML VIAL IVP SCH ×2 (00:35→05:12)
[2016-06-27 05:25] LABS: BUN/Creatinine Ratio 11 (6-26); Blood Urea Nitrogen 9 mg/dL (8-26); Calcium 9.4 mg/dL (8.6-10.8); Carbon Dioxide 21 mEq/L (19-29); Chloride 107 mEq/L (98-109); Glucose 206 mg/dL (70-99); Osmolality,Calculated 291 (280-300); Sodium 138 mEq/L (136-145); eGFR For African Americans > 60 (> 60); eGFR For Non-African Americans > 60 (> 60)
--- NOTE | 2016-06-27 07:14 | Cardiothoracic Progress Note ---
Date of Encounter: 06/27/16 Time of Encounter: 07:13 - Assessment and plan (1) Non-STEMI (non-ST elevated myocardial infarction) Current Visit: Yes Status: Acute The patient will be scheduled for open heart surgery early next week. He is on a heparin drip. At this point he has no questions. - Subjective Interval history: The patient has no history of chest pain and no complaints. Vital Signs, Last 4 Hours Temp Pulse Resp BP Pulse Ox 06/27/16 04:20 98.3 F 72 15 132/94 93 L Oxgyen Flow Rate Oxygen Flow Rate (LPM) 2 Weight 06/25/16 06/26/16 06/27/16 23:59 23:59 23:59 Weight 91.5 kg 91 kg Lungs are clear to percussion and auscultation. Heart is in a normal sinus rhythm. - Labs 06/26/16 01:26 06/27/16 04:38 Lab Results, Last 24 hours 06/26/16 06/26/16 06/26/16 07:01 14:44 21:20 APTT 61.9 H 42.0 H 64.0 H D Sodium Potassium Chloride Carbon Dioxide BUN Creatinine Glucose Calcium 06/27/16 06/27/16 04:38 04:38 APTT 64.1 H Sodium 138 Potassium 4.0 Chloride 107 Carbon Dioxide 21 BUN 9 Creatinine 0.79 Glucose 206 H Calcium 9.4 - VTE Reasons for not Prescribing Prophylaxis: Not indicated-Anticoagulated or INR therapeutic Consult Discharge Plan - Plan Referrals: Jorge Chaidez DO [Primary Care Provider] -
[2016-06-27] MEDS: Aspirin 81 MG TAB.CHEW PO SCH (08:14)
[2016-06-27] MEDS: Insulin LISPRO 300 UNITS/3 ML VIAL SQ SCH ×4 (08:15→20:55)
[2016-06-27] MEDS: 0.9 % Sodium Chloride 1,000 ML IVC SCH ×2 (08:15→18:43)
[2016-06-27] MEDS: Heparin 25,000 UNIT/500 ML D5W 25,000 UNIT/500 ML MLS IVC SCH ×2 (09:12→23:10)
--- NOTE | 2016-06-27 13:38 | Internal Med Progress Note ---
<Leonel Jarvis - Last Filed: 06/27/16 13:36> Date of Encounter: 06/27/16 Time of Encounter: 10:50 - Assessment and plan (1) Non-STEMI (non-ST elevated myocardial infarction) Current Visit: Yes Status: Acute Assessment and plan: Troponin 2.61, 7.50, 9.06. patient without angina today, patient is on aspirin, heparin drip, cozaar, lipitor ty cardiothoracic surgery for ongoing recommendations. (2) Diabetes mellitus type II, non insulin dependent Current Visit: Yes Status: Acute Assessment and plan: blood sugars wnl (3) HTN (hypertension) Current Visit: Yes Status: Chronic Assessment and plan: betablocker and arb Qualifiers: Hypertension type: essential hypertension Qualified Code(s): I10 - Essential (primary) hypertension (4) Tobacco abuse disorder Current Visit: Yes Status: Acute Assessment and plan: smoking cessation counseling provided. patient amenable to nicotine patches. (5) DVT prophylaxis Current Visit: Yes Status: Acute Assessment and plan: heparin gtt - Time Spent With Patient 25 - 35 minutes - Subjective Interval history: patient not complaining of any chest pains or sob today. denies f/n/v/d/chills. he is not moving/getting out of bed much. 06/27 patient denies chest pains, shortness of breath. has resolved since he came in on sunday evening. denies f/n/v/d/chills. ready for heart cath today. - Constitutional Vitals: Temp Pulse Resp BP Pulse Ox 98.0 F 70 16 113/80 93 L 06/27/16 11:18 06/27/16 11:18 06/27/16 11:18 06/27/16 11:18 06/27/16 11:18 Exam: General appearance: Present: A&O X 3, no acute distress - Head Head exam: Present: atraumatic, normocephalic - Eye Eye exam: Present: PERRL, conjuntiva pink, sclera anicteric Pupils: Present: PERRL - Neck Neck exam general surgery: Present: supple, trachea midline. Absent: lymphadenopathy - Respiratory Respiratory exam: Present: slight b/l rhonchi dry. Absent: accessory muscle use , rales, wheezes - Cardiovascular Cardiovascular exam: Present: RRR, +S1, +S2. Absent: gallop, rubs - GI/Abdominal GI/Abdominal exam: Present: normal bowel sounds, soft, no peritoneal signs. Absent: distended, tenderness - Extremities Exam Extremities exam: Present: warm, radial pulses palpable and symetrical. Absent : calf tenderness, cyanotic, pedal edema - Neurological Exam Neurological exam: Present: CN II-XII intact, oriented X3 - Skin Skin exam: Present: dry, intact Internal Medicine: Result - Labs CBC & Chem 7: 06/26/16 01:26 06/27/16 04:38 Labs: [facility] 06/27/16 04:38 Sodium 138 Potassium 4.0 Chloride 107 Carbon Dioxide 21 BUN 9 Creatinine 0.79 Glucose 206 H Calcium 9.4 - ABG Interpretation ABG results: PT/INR, D-dimer PT 11.4 Seconds (9.4-12.1) 06/25/16 00:56 - VTE Reasons for not Prescribing Prophylaxis: Not indicated-Anticoagulated or INR therapeutic Consult Discharge Plan - Plan Referrals: Jorge Chaidez, [Primary Care Provider] - <Jovani Perdomo - Last Filed: 06/27/16 18:30> - Assessment and plan (1) Diabetes Current Visit: No Status: Acute Qualifiers: Diabetes mellitus type: type 2 Diabetes mellitus complication status: with circulatory complication Diabetes mellitus complication detail: with other circulatory complications Diabetes mellitus roasterman insulin use: without roasterman use Qualified Code(s): E11.59 - Type 2 diabetes mellitus with other circulatory complications (2) CAD (coronary artery disease), [place] coronary artery Current Visit: Yes Status: Acute Qualifiers: [place] vs. transplanted heart: [place] heart Associated angina: with stable angina Qualified Code(s): I25.118 - Atherosclerotic heart disease of [place] coronary artery with other forms of angina pectoris - Constitutional Vitals: Temp Pulse Resp BP Pulse Ox 97.7 F 80 16 110/87 93 L 06/27/16 16:18 06/27/16 16:18 06/27/16 16:18 06/27/16 16:18 06/27/16 16:18 Internal Medicine: Result - Labs CBC & Chem 7: 06/26/16 01:26 06/27/16 04:38 Labs: BMP 06/27/16 04:38 Sodium 138 Potassium 4.0 Chloride 107 Carbon Dioxide 21 BUN 9 Creatinine 0.79 Glucose 206 H Calcium 9.4 - ABG Interpretation ABG results: PT/INR, D-dimer PT 11.4 Seconds (9.4-12.1) 06/25/16 00:56 - Attending Attestation I examined this patient and my medical decision-making was reviewed with the Resident Physician. I agree with the documented findings, disposition and treatment plan as described except to the extent set forth below. Mr. Perez is currently admitted for acute NSTEMI and found to have 3 vessel disease. He is to undergo CABG next week. He is moderate risk due to potential of worsening cardiac issues. He is currently on a heparin drip. Mr. Perez is resting comfortably. No new issues overnight. No chest pain or dyspnea. Tolerating heparin drip. No GI symptoms or other issues currently. Exam alert. Comfortable Heart reg Lungs no wheeze No edema I/P 1. Acute nSTEMI 2. CAD on heparin 3. Diabetes Further diagnoses and plan as above.
--- NOTE | 2016-06-27 14:55 | Cardiology Progress Note ---
Date of Encounter: 06/27/16 Time of Encounter: 14:30 Assessment and Plan (1) Non-STEMI (non-ST elevated myocardial infarction) Current Visit: Yes Status: Acute Per Cardiology: Troponin 2.61, 7.50, 9.06. Ischemic ECG changes. Chest pain free upon exam. LHC: severe 3v CAD, recommend CT consult for CABG evaluation. No issues with right radial cath site. Plan for CABG, tentative Sunday07/03/16 to allow for Brilinta wash-out. Continue heparin gtt, asa, statin, and betablocker. Start NTG gtt if develops chest pain or discomfort. Cardiology will sign-off, please re-consult or call with questions or concerns. Follow-up with [facility] as outpatient. (2) HTN (hypertension) Current Visit: Yes Status: Chronic Controlled, continue current medications. Qualifiers: Qualified Code(s): I10 - Essential (primary) hypertension (3) Tobacco abuse disorder Current Visit: Yes Status: Chronic Smoking cessation counseling provided. Discussion w patient/family: The assessment and plan as outlined above was discussed with the patient and/or family members who expressed understanding and agreement. All questions were answered. Thank you for involving us in the care of your patient. Please call with any questions. The patient was discussed and reviewed with Dr. Rodolfo Collins; Cardiology will sign-off. Subjective Principal diagnosis: NSTEMI Interval history: Seen and examined. Denies recurrent chest pain since admission. Objective Vital Signs, Last 4 Hours Temp Pulse Resp BP Pulse Ox 06/27/16 11:18 98.0 F 70 16 113/80 93 L General: Conversant, No Apparent Distress HEENT: Atraumatic, Normocephaly, Mucus Membranes Moist Neck: No JVD Cardiac: Reg Rate and Rhythm, Normal S1 and S2 Lungs: Normal Breath Sounds Abdomen: Soft Skin: No rashes noted on visualized skin Musculoskeletal: No Chest Wall Tenderness Extremities: No Edema, Normal Pulses Results 06/26/16 01:26 06/27/16 04:38 Lab Results 06/26/16 06/26/16 06/27/16 14:44 21:20 04:38 APTT 42.0 H 64.0 H D Sodium 138 Potassium 4.0 Chloride 107 Carbon Dioxide 21 BUN 9 Creatinine 0.79 Glucose 206 H Calcium 9.4 06/27/16 04:38 APTT 64.1 H Sodium Potassium Chloride Carbon Dioxide BUN Creatinine Glucose Calcium Active Medications Acetaminophen (Tylenol) 650 mg PO Q6HR PRN PRN Reason: Mild Pain (1-3) Stop: 12/24/16 23:48 Aspirin (Aspirin) 81 mg PO DAILY [facility] Stop: 12/26/16 09:01 Last Admin: 06/27/16 08:14 Dose: 81 mg Atorvastatin Calcium (Lipitor) 40 mg PO HS ISAC Stop: 12/25/16 21:01 Last Admin: 06/26/16 21:01 Dose: 40 mg Carvedilol (Coreg) 6.25 mg PO BIDWM ISAC PRN Reason: Protocol Stop: 12/25/16 08:31 Last Admin: 06/27/16 08:14 Dose: 6.25 mg Dextrose/Water (Dextrose 50% (Syg)) 25 ml IVP AD PRN PRN Reason: Hypoglycemia Stop: 12/25/16 03:32 Glucagon (Glucagen) 1 mg IM ONCE PRN PRN Reason: Hypoglycemia Stop: 12/25/16 03:32 Glucose (Gluctose) 15 gm PO ONCE PRN PRN Reason: Hypoglycemia Stop: 12/25/16 03:32 Glucose (Gluctose) 30 gm PO ONCE PRN PRN Reason: Hypoglycemia Stop: 12/25/16 03:32 Heparin Sodium (Porcine) (Heparin) 4,000 unit IVP Q6HR PRN PRN Reason: SEE COMMENTS Stop: 12/24/16 23:48 Last Admin: 06/25/16 14:20 Dose: 4,000 unit Heparin Sodium (Porcine) (Heparin) 2,000 unit IVP Q6H PRN PRN Reason: SEE COMMENTS Stop: 12/24/16 23:48 Last Admin: 06/26/16 15:47 Dose: 2,000 unit Sodium Chloride (0.9 % Sodium Chloride) 1,000 mls @ 75 mls/hr IVC .[id number] ISAC Stop: 12/24/16 23:46 Last Admin: 06/27/16 08:15 Dose: 75 mls/hr Heparin Sodium/Dextrose (Heparin 25,000 Unit/500 Ml D5w) 25,000 unit in 500 mls @ 19.947 mls/hr IVC .Q24H ISAC; 10.9 UNIT/KG/HR PRN Reason: Protocol Stop: 12/24/16 23:46 Last Admin: 06/27/16 09:12 Dose: 20.7 unit/kg/hr, 37.881 mls/hr Dextrose (Dextrose 5%) 1,000 mls @ 100 mls/hr IV CONT PRN PRN Reason: HYPOGLYCEMIA Stop: 12/25/16 03:32 Insulin Human Lispro (Humalog) 0 units SQ HS ISAC PRN Reason: Protocol Stop: 12/26/16 21:01 Last Admin: 06/26/16 21:01 Dose: 3 units Insulin Human Lispro (Humalog) 0 units SQ TIDAC ISAC PRN Reason: Protocol Stop: 12/26/16 16:31 Last Admin: 06/27/16 12:00 Dose: 2 units Losartan Potassium (Cozaar) 50 mg PO DAILY ISAC PRN Reason: Protocol Stop: 12/25/16 09:01 Last Admin: 06/27/16 08:14 Dose: 50 mg Morphine Sulfate (Morphine Sulfate) 2 mg IVP Q4HR PRN PRN Reason: Severe Pain (7-10) Stop: 12/24/16 23:48 Naloxone HCl (Narcan) 0.4 mg IVP Q2MIN PRN PRN Reason: Opioid Reversal Stop: 12/24/16 23:48 Nitroglycerin (Nitroglycerin) 1 inch TP Q6HNTG ISAC Stop: 12/24/16 23:46 Ondansetron HCl (Zofran) 4 mg IVP Q8HR PRN PRN Reason: Nausea And Vomiting Stop: 12/24/16 23:48 - Imaging and Cardiology Echo: pending Cardiac cath: report reviewed Other Results: 12 hour tele: avg HR=73 SR. No significant events noted. - EKG Interpretation EKG results cardiology: personally reviewed - VTE Reasons for not Prescribing Prophylaxis: Not indicated-Anticoagulated or INR therapeutic Consult Discharge Plan - Plan Referrals: Jorge Chaidez DO [Primary Care Provider] -
[2016-06-27] MEDS: Nicotine 21 MG PATCH.TD24 TD SCH (18:45)
[2016-06-28] MEDS: 0.9 % Sodium Chloride 1,000 ML IVC SCH ×2 (07:41→21:30)
--- NOTE | 2016-06-28 08:24 | Cardiothoracic Progress Note ---
Date of Encounter: 06/28/16 Time of Encounter: 08:23 - Assessment and plan (1) Non-STEMI (non-ST elevated myocardial infarction) Current Visit: Yes Status: Acute The patient will be a candidate for open heart surgery early next week. At this point, he has no questions. - Subjective Interval history: The patient has no complaints and no angina or chest pain. Vital Signs, Last 4 Hours Temp Pulse Resp BP Pulse Ox 06/28/16 06:58 98.2 F 77 16 134/110 95 Oxgyen Flow Rate Oxygen Flow Rate (LPM) 2 Weight 06/26/16 06/27/16 06/28/16 23:59 23:59 23:59 Weight 91 kg 91.3 kg Lungs are clear to percussion and auscultation. Heart is in a normal sinus rhythm. - Labs 06/26/16 01:26 06/27/16 04:38 Lab Results, Last 24 hours 06/28/16 05:20 APTT 63.9 H - VTE Reasons for not Prescribing Prophylaxis: Not indicated-Anticoagulated or INR therapeutic Consult Discharge Plan - Plan Referrals: Jorge Chaidez DO [Primary Care Provider] -
[2016-06-28] MEDS: Aspirin 81 MG TAB.CHEW PO SCH (08:29)
[2016-06-28] MEDS: Nicotine 21 MG PATCH.TD24 TD SCH (08:29)
[2016-06-28] MEDS: Insulin LISPRO 300 UNITS/3 ML VIAL SQ SCH ×4 (08:30→21:32)
--- NOTE | 2016-06-28 11:16 | ECHO - Doppler Report ---
Echocardiogram Name: Victoriano Perez Date of Study: 06/28/2016 Date: 1975 Ht: 68.0 in Medical Record#: [id number] Age: 41 Wt: 201.0 lb Gender: Male BSA: 2.05 Order #: [id number] Location: [facility] Room #: [id number] Reading Physician: Karina Kaplan DO Retail Experience Specialist: Lona Baumann Ordering Physician: Janelle Bird CNP Primary Physician: None Indications: NSTEMI Impressions: LVEF 50-55%. Low normal LV systolic function. Not all myocardial segments were well visualized on this study. There is evidence of mild diastolic dysfunction of the left ventricle. Normal right ventricular size and function. Mild mitral regurgitation. Estimated RVSP was 26 mmHg. No pulmonary hypertension. Left Ventricular Wall Motion: Rest Echo Findings The apex, apical inferior, mid inferior, basal inferior, apical anterior, mid anterior and basal anterior lee were not visualized. All other wall segments showed normal motion. Findings: Study Quality * Technically adequate exam. ECG Findings * Normal sinus rhythm. Left Atrium * Normal left atrial size. Mitral Valve * Normal mitral valve structure. * No mitral stenosis. * Mild mitral regurgitation. Aortic Valve * No aortic regurgitation. * Trileaflet aortic valve. * Normal aortic valve structure. * No aortic stenosis. Tricuspid Valve * Normal tricuspid valve structure. * Trace tricuspid regurgitation. * Estimated RA pressure is 3 mmHg. * Estimated RVSP is 26 mmHg. * No pulmonary hypertension. Pulmonic Valve * Pulmonic valve is not well visualized. * No pulmonic stenosis. * No pulmonic regurgitation. Pulmonary Artery * Pulmonary artery not well visualized. Left Ventricle * Normal LV chamber size, wall thickness and function. * Mild left ventricular diastolic dysfunction. * LVEF 50-55%. Right Ventricle * Normal right ventricular structure and function. Right Atrium * Normal right atrial size. Interatrial Septum * No evidence of PFO by color Doppler. IVC * Normal IVC dimensions and inspiratory collapse. Pericardium * There is no pericardial effusion present. Aorta * Normally sized aortic root. History Hypertension Diabetes Hypercholesteremia Family History of CAD Measurements: BP: 134/ 110 2D Normal Values IVSd: 1.40 cm 0.6 - 1.0 cm LVIDd: 4.70 cm 3.7 - 5.6 cm LVPWd: 1.40 cm 0.6 - 1.1 cm LVIDs: 3.50 cm 1.5 - 3.6 cm AO: 3.30 cm < 4.0 cm LA: 4.10 cm 2.0 - 4.0cm %FS: 25.50 cm >25 % LA volume: 36 Mitral Valve Peak E:.68 m/sec Peak A:.81 m/sec E/A Ratio:0.8 Peak E' Lat Leander:8.77 cm/s Peak E' Med [place]:5.95 cm/s E/E' Lat Ratio:7.8 E/E' Med Ratio:11.4 Tricuspid Valve TV Regurg Peak Grad: 23.00mmHg TV Regurg Peak Leander: 2.38m/sec Updated by Karina Kaplan on 06/28/2016 11:12:20 AM electronically signed on 06/28/2016 11:13:15 AM with status of Final Wall Motion [place]: 1=Normal, 2=Hypokinesis, 3=Akinesis, 4=Dyskinesis, 5=Aneurysmal, 6=Hyperkinetic, X=Not Visualized (Blank)=Missing
--- NOTE | 2016-06-28 12:04 | Invasive Diagnostic Lab ---
Name: Victoriano Perez Date of Study: 06/26/2016 Date: 1975 Ht: 173.0 cm /68.1 in Medical Record#: [id number] Age: 41 Wt: 91. kg / 200.62 lb Account/Order#: [id number] Gender: Male BSA: 2.05 Order #: [id number] Fluoro Dose: 489 mGy BMI: 30.41 Procedure Physician: Stepan Ng MD, [facility] Referring MD: Jorge Chaidez DO Referring MD: Procedures Performed: LEFT HEART CATH IV Doppler BLD Flow 1st Vessel IV Doppler BLD Flow Ad'l Vessel Indications: Non-Stemi Impressions: There is severe three vessel coronary artery disease. The left ventricle is normal and has mildly abnormal contractility EF 40% FFR Measurement: 0.8 LAD and 0.71 circumflex There are R to R and L to R collaterals noted to the RCA Recommendations: Optimal medical therapy of patient's disease. Aggressive risk factor modification. Suggest patient have coronary artery bypass surgery because of systolic CHF and diabetes. History/Risk Factors: GERD Diabetes Hypertension Dyslipidemia Current/Recent Smoker Family History of CAD Procedure Access obtained in the right Radial artery by percutaneous puncture A pressure tipped wire was advanced through the catheter into the LAD and Circumflex. Measurements of FFR were made during hyperemia induced by intracoronary adenosine. FFR Measurement 0.8 LAD and 0.71 Circumflex Complications: None Contrast: Isovue 127ml Closure Device: Mechanical Compression Hemodynamics: Pressures Site Systolic/ A Wave Diastolic/ V Wave End Diastolic/ Mean HR AO 119 96 107 85 LV 147 11 21 73 LV 150 14 23 76 AO 141 100 119 75 AO 162 117 136 89 Wire 164 108 132 89 AO 169 116 139 82 Wire 174 117 141 82 AO 141 92 113 72 Wire 131 81 101 72 AO 123 82 100 72 Wire 115 64 83 72 AO 144 93 113 69 Wire 131 72 93 69 AO 172 114 138 78 Wire 154 90 117 78 AO 146 98 118 65 Wire 126 60 85 65 LV Ventriculography Ejection Method: LV Gram Ejection Fraction: 40% Wall Motion: [place] Anterobasal Normal Anterolateral Mild Hypokinesis Apical: Normal Inferoapical Severe Hypokinesis Inferobasal Moderate Hypokinesis Coronary Dominance: right Lesion Findings/Interventions * Left Main Coronary Artery The LMCA is angiographically free of disease. * Left Anterior Descending The 1st Diagonal is small in size. There is a 60% stenosis in the Proximal LAD. There is a 100% stenosis in the Distal LAD. There is a 50% stenosis in the 1st Diagonal. * Circumflex There is a 60-70% stenosis in the Mid Circumflex. There is a 60-70% stenosis in the Distal Circumflex. * Right Coronary Artery There is a 70% stenosis in the Proximal RCA. There is a 90% stenosis in the Mid-Distal RCA. There is a 100% stenosis in the PLB. There are R to R and L to R collaterals noted. Updated by Dimitrios Conti RN on 06/26/2016 12:42:47 PM Stepan Ng MD, FACC electronically signed on 06/28/2016 11:58:29 AM with status of Final
--- NOTE | 2016-06-28 12:59 | Internal Med Progress Note ---
<Leonel Jarvis - Last Filed: 06/28/16 13:01> Date of Encounter: 06/28/16 Time of Encounter: 08:56 - Assessment and plan (1) Non-STEMI (non-ST elevated myocardial infarction) Current Visit: Yes Status: Acute Assessment and plan: Troponin 2.61, 7.50, 9.06. on admission pt continues to be without angina. continue to follow cardiothoracic surgery recommendations (2) Diabetes mellitus type II, non insulin dependent Current Visit: Yes Status: Acute (3) HTN (hypertension) Current Visit: Yes Status: Chronic Assessment and plan: betablocker and arb Qualifiers: Hypertension type: essential hypertension Qualified Code(s): I10 - Essential (primary) hypertension (4) Tobacco abuse disorder Current Visit: Yes Status: Acute Assessment and plan: smoking cessation counseling provided. patient amenable to nicotine patches. (5) DVT prophylaxis Current Visit: Yes Status: Acute Assessment and plan: heparin gtt - Time Spent With Patient less than 15 minutes - Subjective Interval history: patient not having any chest pains/sob. resting in bed. no fevers/chills/nvd. - Constitutional Vitals: Temp Pulse Resp BP Pulse Ox 97.8 F 70 16 136/80 92 L 06/28/16 11:00 06/28/16 11:00 06/28/16 11:00 06/28/16 11:00 06/28/16 11:00 Exam: General appearance: Present: A&O X 3, no acute distress - Head Head exam: Present: atraumatic, normocephalic - Eye Eye exam: Present: PERRL, conjuntiva pink, sclera anicteric Pupils: Present: PERRL - Neck Neck exam general surgery: Present: supple, trachea midline. Absent: lymphadenopathy - Respiratory Respiratory exam: Present: minimal rhonchi bilateral dry - Cardiovascular Cardiovascular exam: Present: RRR, +S1, +S2. Absent: gallop, rubs - GI/Abdominal GI/Abdominal exam: Present: normal bowel sounds, soft, no peritoneal signs. Absent: distended, tenderness - Extremities Exam Extremities exam: Present: warm, radial pulses palpable and symetrical. - Skin Skin exam: Present: dry, intact Internal Medicine: Result - Labs CBC & Chem 7: 06/26/16 01:26 06/27/16 04:38 - ABG Interpretation ABG results: PT/INR, D-dimer PT 11.4 Seconds (9.4-12.1) 06/25/16 00:56 - VTE Reasons for not Prescribing Prophylaxis: Not indicated-Anticoagulated or INR therapeutic Consult Discharge Plan - Plan Referrals: Jorge Chaidez DO [Primary Care Provider] - <Jovani Perdomo - Last Filed: 06/28/16 18:18> - Assessment and plan (1) Diabetes Current Visit: No Status: Acute Qualifiers: Diabetes mellitus type: type 2 Diabetes mellitus complication status: with circulatory complication Diabetes mellitus complication detail: with other circulatory complications Diabetes mellitus correction insulin use: without correction use Qualified Code(s): E11.59 - Type 2 diabetes mellitus with other circulatory complications (2) CAD (coronary artery disease), [place] coronary artery Current Visit: Yes Status: Acute Qualifiers: [place] vs. transplanted heart: [place] heart Associated angina: with stable angina Qualified Code(s): I25.118 - Atherosclerotic heart disease of [place] coronary artery with other forms of angina pectoris - Time Spent With Patient 25 - 35 minutes (I spent lower time educating patient.) - Constitutional Vitals: Temp Pulse Resp BP Pulse Ox 97.5 F L 70 16 133/92 93 L 06/28/16 15:34 06/28/16 15:34 06/28/16 15:34 06/28/16 15:34 06/28/16 15:34 Internal Medicine: Result - Labs CBC & Chem 7: 06/26/16 01:26 06/27/16 04:38 - ABG Interpretation ABG results: PT/INR, D-dimer PT 11.4 Seconds (9.4-12.1) 06/25/16 00:56 - Attending Attestation I examined this patient and my medical decision-making was reviewed with the Resident Physician. I agree with the documented findings, disposition and treatment plan as described except to the extent set forth below. Mr. Perez is currently admitted for acute NSTEMI with triple vessel disease and is awaiting CABG. He is moderate risk due to potential of worsening cardiac issues. Mr. Perez feels OK. No further chest discomfort noted. No dypsnea or cough. No diarrhea or constipation. Family here in room and are aware of plan for CABG next week. Exam Alert. Comfortable Heart reg No wheeze No edema I/P 1. NSTEMI 2. CAD 3. Smoker Further diagnoses and plan as above.
[2016-06-29] MEDS: Heparin 25,000 UNIT/500 ML D5W 25,000 UNIT/500 ML MLS IVC SCH (02:14)
[2016-06-29] MEDS: Aspirin 81 MG TAB.CHEW PO SCH (08:07)
[2016-06-29] MEDS: Insulin LISPRO 300 UNITS/3 ML VIAL SQ SCH ×4 (08:07→20:44)
[2016-06-29] MEDS: Nicotine 21 MG PATCH.TD24 TD SCH (08:08)
--- NOTE | 2016-06-29 09:56 | Internal Med Progress Note ---
<Jamar Santamaria - Last Filed: 06/29/16 11:20> Date of Encounter: 06/29/16 Time of Encounter: 09:54 - Assessment and plan (1) Non-STEMI (non-ST elevated myocardial infarction) Current Visit: Yes Status: Acute Assessment and plan: Patient is currently stable and is chest pain free, currently on Heparin ggt, BB , ASA, statin Severe 3 vessel disease see on cath on 06/26 CT Surgeon recommended CABG, but patient took Brillinta Surgery has been postponed until Jul 03, 2016 (2) HTN (hypertension) Current Visit: Yes Status: Chronic Assessment and plan: Vitals have been stable over past several days Continue with home Cozaar and Coreg Qualifiers: Hypertension type: essential hypertension Qualified Code(s): I10 - Essential (primary) hypertension (3) Diabetes mellitus type II, non insulin dependent Current Visit: Yes Status: Acute Assessment and plan: Will change to medium dose SSI as she has some preprandial measurements above 200 (4) DVT prophylaxis Current Visit: Yes Status: Acute Assessment and plan: Currently on Heparin ggt - Subjective Interval history: Pt seen and examined. He states he is feeling well this morning and has no complaints of chest pain or shortness of breath. Has been eating his meals without issues, denying nausea, vomiting, diarrhea. - Constitutional Vitals: Temp Pulse Resp BP Pulse Ox 98.0 F 77 15 145/98 93 L 06/29/16 07:30 06/29/16 07:30 06/29/16 07:30 06/29/16 07:30 06/29/16 07:30 General appearance: Present: A&O X 3, pleasant, no acute distress, answers questions appropriately - Head Head exam: Present: atraumatic, normocephalic - Eye Eye exam: Present: PERRL, conjuntiva pink, sclera anicteric - Neck Neck exam general surgery: Present: supple, trachea midline. Absent: lymphadenopathy - Respiratory Respiratory exam: Present: CTAB. Absent: accessory muscle use, rales, rhonchi, wheezes - Cardiovascular Cardiovascular exam: Present: distant heart sounds, RRR, +S1, +S2. Absent: diastolic murmur, gallop, rubs, systolic murmur - GI/Abdominal GI/Abdominal exam: Present: normal bowel sounds, soft, no peritoneal signs. Absent: distended, tenderness - Extremities Exam Extremities exam: Present: warm, radial pulses palpable and symetrical. Absent : calf tenderness, cyanotic, pedal edema - Neurological Exam Neurological exam: Present: alert, no focal deficits. Absent: facial droop, speech deficit - Skin Skin exam: Present: dry, intact Internal Medicine: Result - Labs CBC & Chem 7: 06/26/16 01:26 06/27/16 04:38 - ABG Interpretation ABG results: PT/INR, D-dimer PT 11.4 Seconds (9.4-12.1) 06/25/16 00:56 - VTE Reasons for not Prescribing Prophylaxis: Not indicated-Anticoagulated or INR therapeutic Consult Discharge Plan - Plan Referrals: Jorge Chaidez DO [Primary Care Provider] - <Jovani Perdomo - Last Filed: 06/29/16 19:56> - Assessment and plan (1) Diabetes Current Visit: No Status: Acute Qualifiers: Diabetes mellitus type: type 2 Diabetes mellitus complication status: with circulatory complication Diabetes mellitus complication detail: with other circulatory complications Diabetes mellitus manager long term care insulin use: without manager long term care use Qualified Code(s): E11.59 - Type 2 diabetes mellitus with other circulatory complications (2) CAD (coronary artery disease), [place] coronary artery Current Visit: Yes Status: Acute Qualifiers: [place] vs. transplanted heart: [place] heart Associated angina: with stable angina Qualified Code(s): I25.118 - Atherosclerotic heart disease of [place] coronary artery with other forms of angina pectoris - Constitutional Vitals: Temp Pulse Resp BP Pulse Ox 98.0 F 72 15 119/76 93 L 06/29/16 15:00 06/29/16 15:00 06/29/16 15:00 06/29/16 15:00 06/29/16 15:00 Internal Medicine: Result - Labs CBC & Chem 7: 06/26/16 01:26 06/27/16 04:38 - ABG Interpretation ABG results: PT/INR, D-dimer PT 11.4 Seconds (9.4-12.1) 06/25/16 00:56 - Attending Attestation I examined this patient and my medical decision-making was reviewed with the Resident Physician. I agree with the documented findings, disposition and treatment plan as described except to the extent set forth below. Mr. Perez is currently admitted for acute NSTEMI with triple vessel disease and is awaiting CABG. He is moderate risk due to potential of worsening cardiac issues. Mr. Perez is eating lunch. He has had no further chest pain. No other issues. Exam Alert. Comfortable Heart reg No wheeze No edema I/P 1. NSTEMI 2. CAD Awaiting CABG next week.
--- NOTE | 2016-06-29 10:23 | Cardiothoracic Progress Note ---
Date of Encounter: 06/29/16 Time of Encounter: 10:20 - Assessment and plan (1) CAD (coronary artery disease), [place] coronary artery Current Visit: Yes Status: Acute The patient is a 41-year-old type II diabetic, hypertensive man with hypercholesterolemia who was admitted to [facility] with complaints of unrelenting substernal chest pressure radiating to his back. He underwent cardiac catheterization was found to have severe three-vessel CAD and was recommended for CABG. Unfortunately, patient received Brilinta and his operation will be postponed until Sunday, July 03, 2016 to allow the antiplatelet effect to resolve. The assessment and plan as outlined above was discussed with the patient and/or family members who expressed understanding and agreement. All questions were answered. Qualifiers: [place] vs. transplanted heart: [place] heart Associated angina: with stable angina Qualified Code(s): I25.118 - Atherosclerotic heart disease of [place] coronary artery with other forms of angina pectoris - Subjective Interval history: The patient is resting comfortably in his hospital bed. He has no complaints of substernal chest pain or shortness of breath. Vital Signs, Last 4 Hours Temp Pulse Resp BP Pulse Ox 06/29/16 07:30 98.0 F 77 15 145/98 93 L [place] Flow Rate Oxygen Flow Rate (LPM) 2 Clinical Data, last 8 Hours Output, Urine Amount 0 Weight 06/27/16 06/28/16 06/29/16 23:59 23:59 23:59 Weight 91 kg 91.3 kg 92.7 kg - Physical Examination General: Conversant, No Apparent Distress Neck: No JVD, Normal carotid pulses Cardiac: Reg Rate and Rhythm, Normal S1 and S2, No Murmur Lungs: Normal Breath Sounds, No Wheeze, Rales, Rhonchi Neuro: Alert and responsive, No focal deficits noted Vascular: Normal capillary refill Skin: No rashes noted on visualized skin Extremities: No Clubbing, No Cyanosis, No Edema - Labs 06/26/16 01:26 06/27/16 04:38 Lab Results, Last 24 hours 06/29/16 04:41 APTT 59.7 H - VTE Reasons for not Prescribing Prophylaxis: Not indicated-Anticoagulated or INR therapeutic Consult Discharge Plan - Plan Referrals: Jorge Chaidez DO [Primary Care Provider] -
[2016-06-30 05:06] LABS: Basophils # 0.1 K/mcL (0.0-0.2); Basophils % 1.2 %; Eosinophils # 0.3 K/mcL (0.0-0.6); Hematocrit 44.7 % (37.5-50.1); Hemoglobin 16.2 g/dL (12.9-16.9); Immature Granulocytes % 0.1 % (0-4); Lymphocytes # 2.6 K/mcL (0.6-4.6); Mean Corpuscular HGB Conc 36.2 g/dL (31.6-35.5); Mean Corpuscular Hemoglobin 33.3 pg (28.0-33.3); Mean Corpuscular Volume 91.8 fL (83.0-100.0); Mean Platelet Volume 11.9 fL (9.4-12.4); Monocytes # 0.4 K/mcL (0.0-1.3); Monocytes % 5.4 %; Neutrophils # 3.5 K/mcL (1.6-8.9); Platelet Count 146 K/mcL (140-400); Red Blood Count 4.87 M/mcL (4.19-5.50); Red Cell Distribution Width 11.3 % (11.5-14.5); Segmented Neutrophils % 50.3 %
[2016-06-30 05:28] LABS: BUN/Creatinine Ratio 9 (6-26); Blood Urea Nitrogen 7 mg/dL (8-26); Calcium 9.6 mg/dL (8.6-10.8); Carbon Dioxide 19 mEq/L (19-29); Chloride 105 mEq/L (98-109); Osmolality,Calculated 288 (280-300); Sodium 136 mEq/L (136-145); eGFR For African Americans > 60 (> 60); eGFR For Non-African Americans > 60 (> 60)
[2016-06-30 05:29] LABS: Glucose 235 mg/dL (70-99)
[2016-06-30] MEDS ORDERED: ceFAZolin 2,000 MG in D5% in Water 100 ML IVPB ONE (07:25)
--- NOTE | 2016-06-30 07:36 | Cardiothoracic Progress Note ---
Date of Encounter: 06/30/16 Time of Encounter: 07:35 - Assessment and plan (1) CAD (coronary artery disease), [place] coronary artery Current Visit: Yes Status: Acute The patient is a 41-year-old type II diabetic, hypertensive man with hypercholesterolemia who was admitted to [facility] with complaints of unrelenting substernal chest pressure radiating to his back. He underwent cardiac catheterization was found to have severe three-vessel CAD and was recommended for CABG. Unfortunately, patient received Brilinta and his operation will be postponed until Sunday, July 03, 2016 to allow the antiplatelet effect to resolve. The assessment and plan as outlined above was discussed with the patient and/or family members who expressed understanding and agreement. All questions were answered. Qualifiers: [place] vs. transplanted heart: [place] heart Associated angina: with stable angina Qualified Code(s): I25.118 - Atherosclerotic heart disease of [place] coronary artery with other forms of angina pectoris - Subjective Interval history: The patient is resting comfortably in his hospital bed. He has no complaints of substernal chest pain or shortness of breath. Vital Signs, Last 4 Hours Temp Pulse Resp BP Pulse Ox 06/30/16 04:20 97.8 F 66 16 123/82 93 L [place] Flow Rate Oxygen Flow Rate (LPM) 0 Weight 06/28/16 06/29/16 06/30/16 23:59 23:59 23:59 Weight 91.3 kg 92.7 kg - Physical Examination General: Conversant, No Apparent Distress Neck: No JVD, Normal carotid pulses Cardiac: Reg Rate and Rhythm, Normal S1 and S2, No Murmur Lungs: Normal Breath Sounds, No Wheeze, Rales, Rhonchi Neuro: Alert and responsive, No focal deficits noted Vascular: Normal capillary refill Musculoskeletal: No Chest Wall Tenderness Extremities: No Clubbing, No Cyanosis, No Edema - Labs 06/30/16 04:35 06/30/16 04:35 Lab Results, Last 24 hours 06/30/16 06/30/16 06/30/16 04:35 04:35 04:35 WBC 6.9 Hgb 16.2 Hct 44.7 Plt Count 146 APTT 63.7 H Sodium 136 Potassium 4.0 Chloride 105 Carbon Dioxide 19 BUN 7 L Creatinine 0.76 Glucose 235 H Calcium 9.6 - VTE Reasons for not Prescribing Prophylaxis: Not indicated-Anticoagulated or INR therapeutic Consult Discharge Plan - Plan Referrals: Jorge Chaidez DO [Primary Care Provider] -
[2016-06-30] MEDS: Aspirin 81 MG TAB.CHEW PO SCH (08:22)
[2016-06-30] MEDS: Nicotine 21 MG PATCH.TD24 TD SCH (08:22)
[2016-06-30] MEDS: Insulin LISPRO 300 UNITS/3 ML VIAL SQ SCH ×4 (08:25→21:55)
--- NOTE | 2016-06-30 09:47 | Internal Med Progress Note ---
<Jamar Santamaria - Last Filed: 06/30/16 14:57> Date of Encounter: 06/30/16 Time of Encounter: 09:46 - Assessment and plan (1) Non-STEMI (non-ST elevated myocardial infarction) Current Visit: Yes Status: Acute Assessment and plan: Patient is currently stable and is chest pain free, currently on Heparin ggt, BB , ASA, statin Severe 3 vessel disease see on cath on 06/26 CT Surgeon recommended CABG, but patient took Brillinta Surgery has been postponed until Jul 03, 2016 (2) HTN (hypertension) Current Visit: Yes Status: Chronic Assessment and plan: Vitals have been stable over past several days Continue with home Cozaar and Coreg Qualifiers: Hypertension type: essential hypertension Qualified Code(s): I10 - Essential (primary) hypertension (3) Diabetes mellitus type II, non insulin dependent Current Visit: Yes Status: Acute Assessment and plan: Continue medium dose SSI as she has some preprandial measurements above 200 (4) DVT prophylaxis Current Visit: Yes Status: Acute Assessment and plan: Currently on Heparin ggt - Subjective Interval history: Pt seen and examined. He continues to feel well this morning and has no issues with chest pain or shortness of breath. Ate breakfast this morning and does not have nausea, vomiting, diarrhea. - Constitutional Vitals: Temp Pulse Resp BP Pulse Ox 98.0 F 65 14 137/100 91 L 06/30/16 07:57 06/30/16 07:57 06/30/16 07:57 06/30/16 07:57 06/30/16 07:57 General appearance: Present: cooperative, pleasant, no acute distress, answers questions appropriately - Head Head exam: Present: atraumatic, normocephalic - Eye Eye exam: Present: PERRL, conjuntiva pink, sclera anicteric - Neck Neck exam general surgery: Present: supple, trachea midline. Absent: lymphadenopathy - Respiratory Respiratory exam: Present: wheezes (right lower lobe). Absent: accessory muscle use, rales, rhonchi - Cardiovascular Cardiovascular exam: Present: RRR, +S1, +S2. Absent: diastolic murmur, gallop, rubs, systolic murmur - GI/Abdominal GI/Abdominal exam: Present: normal bowel sounds, soft, no peritoneal signs. Absent: distended, tenderness - Extremities Exam Extremities exam: Present: warm, radial pulses palpable and symetrical. Absent : calf tenderness, cyanotic, pedal edema - Neurological Exam Neurological exam: Present: alert, no focal deficits. Absent: facial droop, speech deficit - Skin Skin exam: Present: dry, intact Internal Medicine: Result - Labs CBC & Chem 7: 06/30/16 04:35 06/30/16 04:35 Labs: Short CBC 06/30/16 Range/Units 04:35 WBC 6.9 (4.3-11.1) K/mcL Hgb 16.2 (12.9-16.9) g/dL Hct 44.7 (37.5-50.1) % Plt Count 146 (140-400) K/mcL Neutrophils # 3.5 (1.6-8.9) K/mcL BMP 06/30/16 04:35 Sodium 136 Potassium 4.0 Chloride 105 Carbon Dioxide 19 BUN 7 L Creatinine 0.76 Glucose 235 H Calcium 9.6 - ABG Interpretation ABG results: PT/INR, D-dimer PT 11.4 Seconds (9.4-12.1) 06/25/16 00:56 - VTE Reasons for not Prescribing Prophylaxis: Not indicated-Anticoagulated or INR therapeutic Consult Discharge Plan - Plan Referrals: Jorge Chaidez DO [Primary Care Provider] - <Jovani Perdomo - Last Filed: 06/30/16 17:55> - Assessment and plan (1) Diabetes Current Visit: No Status: Acute Qualifiers: Diabetes mellitus type: type 2 Diabetes mellitus complication status: with circulatory complication Diabetes mellitus complication detail: with other circulatory complications Diabetes mellitus correction insulin use: without correction use Qualified Code(s): E11.59 - Type 2 diabetes mellitus with other circulatory complications (2) CAD (coronary artery disease), [place] coronary artery Current Visit: Yes Status: Acute Qualifiers: [place] vs. transplanted heart: [place] heart Associated angina: with stable angina Qualified Code(s): I25.118 - Atherosclerotic heart disease of [place] coronary artery with other forms of angina pectoris (3) Tobacco abuse disorder Current Visit: Yes Status: Chronic - Constitutional Vitals: Temp Pulse Resp BP Pulse Ox 97.9 F 70 16 118/86 90 L 06/30/16 16:03 06/30/16 16:03 06/30/16 16:03 06/30/16 16:03 06/30/16 16:03 Internal Medicine: Result - Labs CBC & Chem 7: 06/30/16 04:35 06/30/16 04:35 Labs: Short CBC 06/30/16 Range/Units 04:35 WBC 6.9 (4.3-11.1) K/mcL Hgb 16.2 (12.9-16.9) g/dL Hct 44.7 (37.5-50.1) % Plt Count 146 (140-400) K/mcL Neutrophils # 3.5 (1.6-8.9) K/mcL BMP 06/30/16 04:35 Sodium 136 Potassium 4.0 Chloride 105 Carbon Dioxide 19 BUN 7 L Creatinine 0.76 Glucose 235 H Calcium 9.6 - ABG Interpretation ABG results: PT/INR, D-dimer PT 11.4 Seconds (9.4-12.1) 06/25/16 00:56 - Attending Attestation I examined this patient and my medical decision-making was reviewed with the Resident Physician. I agree with the documented findings, disposition and treatment plan as described except to the extent set forth below. Mr. Perez is currently admitted for acute NSTEMI with triple vessel disease and is awaiting CABG. He is moderate risk due to potential of worsening cardiac issues. Mr. Perez denies acute issues. He is eating lunch and family is visiting at this time. Exam Alert. Comfortable Heart reg Lungs no wheeze I/P 1. NSTEMI 2. CAD Awaiting CABG Sunday.
[2016-06-30] MEDS: Heparin 25,000 UNIT/500 ML D5W 25,000 UNIT/500 ML MLS IVC SCH (21:08)
[2016-07-01] MEDS: Heparin 25,000 UNIT/500 ML D5W 25,000 UNIT/500 ML MLS IVC SCH ×2 (07:56→11:16)
--- NOTE | 2016-07-01 08:41 | Cardiothoracic Progress Note ---
Date of Encounter: 07/01/16 Time of Encounter: 08:40 - Assessment and plan (1) CAD (coronary artery disease), [place] coronary artery Current Visit: Yes Status: Acute The patient is a 41-year-old type II diabetic, hypertensive man with hypercholesterolemia who was admitted to [facility] with complaints of unrelenting substernal chest pressure radiating to his back. He underwent cardiac catheterization was found to have severe three-vessel CAD and was recommended for CABG. Unfortunately, patient received Brilinta and his operation will be postponed until Sunday, July 03, 2016 to allow the antiplatelet effect to resolve. The assessment and plan as outlined above was discussed with the patient and/or family members who expressed understanding and agreement. All questions were answered. Qualifiers: [place] vs. transplanted heart: [place] heart Associated angina: with stable angina Qualified Code(s): I25.118 - Atherosclerotic heart disease of [place] coronary artery with other forms of angina pectoris - Subjective Interval history: The patient is resting comfortably in his hospital bed. He has no complaints of substernal chest pain or shortness of breath. Vital Signs, Last 4 Hours Temp Pulse Resp BP Pulse Ox 07/01/16 08:02 97.8 F 70 16 133/99 91 L 07/01/16 05:09 98.1 F 62 14 97/68 93 L Oxgyen Flow Rate Oxygen Flow Rate (LPM) 0 Weight 06/29/16 06/30/16 07/01/16 23:59 23:59 23:59 Weight 92.7 kg 92.4 kg - Physical Examination General: Conversant, No Apparent Distress Cardiac: Reg Rate and Rhythm, Normal S1 and S2, No Murmur Lungs: Normal Breath Sounds, No Wheeze, Rales, Rhonchi Neuro: Alert and responsive, No focal deficits noted Vascular: Normal capillary refill Musculoskeletal: No Chest Wall Tenderness Extremities: No Clubbing, No Cyanosis, No Edema - Labs 06/30/16 04:35 06/30/16 04:35 Lab Results, Last 24 hours 07/01/16 06:39 APTT 71.2 H - VTE Reasons for not Prescribing Prophylaxis: Not indicated-Anticoagulated or INR therapeutic Consult Discharge Plan - Plan Referrals: Jorge Chaidez DO [Primary Care Provider] -
[2016-07-01] MEDS: Nicotine 21 MG PATCH.TD24 TD SCH (09:53)
[2016-07-01] MEDS: Aspirin 81 MG TAB.CHEW PO SCH (09:56)
[2016-07-01] MEDS: Insulin LISPRO 300 UNITS/3 ML VIAL SQ SCH ×4 (09:56→21:38)
--- NOTE | 2016-07-01 16:25 | Internal Med Progress Note ---
Date of Encounter: 07/01/16 Time of Encounter: 11:30 - Assessment and plan (1) Non-STEMI (non-ST elevated myocardial infarction) Current Visit: Yes Status: Acute Assessment and plan: Remains pain free. Anticipate CABG on Sunday. (2) CAD (coronary artery disease), [place] coronary artery Current Visit: Yes Status: Acute Qualifiers: [place] vs. transplanted heart: [place] heart Associated angina: with stable angina Qualified Code(s): I25.118 - Atherosclerotic heart disease of [place] coronary artery with other forms of angina pectoris (3) Diabetes Current Visit: Yes Status: Acute Assessment and plan: Continue accuchecks and coverage Qualifiers: Diabetes mellitus type: type 2 Diabetes mellitus complication status: with circulatory complication Diabetes mellitus complication detail: with other circulatory complications Diabetes mellitus [employer] insulin use: without residential use Qualified Code(s): E11.59 - Type 2 diabetes mellitus with other circulatory complications (4) HTN (hypertension) Current Visit: Yes Status: Chronic Assessment and plan: Continue home meds Qualifiers: Hypertension type: essential hypertension Qualified Code(s): I10 - Essential (primary) hypertension (5) Tobacco abuse disorder Current Visit: Yes Status: Chronic - Subjective Interval history: Mr. Perez is currently admitted for acute NSTEMI with triple vessel disease. He is currently awaiting CABG. He remains moderate risk due to potential for cardiac compromise. Mr. Perez is watching TV. He is awaiting CABG Sunday. He denies new issues overnight. No further chest pain or SOB. - Constitutional Vitals: Temp Pulse Resp BP Pulse Ox 97.7 F 77 16 112/70 97 07/01/16 16:09 07/01/16 16:09 07/01/16 16:09 07/01/16 16:09 07/01/16 16:09 General appearance: Present: cooperative, pleasant, answers questions appropriately - Head Head exam: Present: normocephalic - Eye Eye exam: Present: EOMI, conjuntiva pink - ENT ENT exam: Present: mucous membranes moist - Respiratory Respiratory exam: Present: decreased breath sounds, CTAB - Cardiovascular Cardiovascular exam: Present: RRR. Absent: tachycardia - GI/Abdominal GI/Abdominal exam: Present: soft. Absent: mass, tenderness - Extremities Exam Extremities exam: Present: warm. Absent: pedal edema - Neurological Exam Neurological exam: Present: alert, oriented X3, no focal deficits - Psychiatric Psychiatric exam: Present: normal affect, normal mood - Skin Skin exam: Present: dry, warm. Absent: rash Internal Medicine: Result - Labs CBC & Chem 7: 06/30/16 04:35 06/30/16 04:35 - ABG Interpretation ABG results: PT/INR, D-dimer PT 11.4 Seconds (9.4-12.1) 06/25/16 00:56 - VTE Reasons for not Prescribing Prophylaxis: Not indicated-Anticoagulated or INR therapeutic Consult Discharge Plan - Plan Referrals: Jorge Chaidez DO [Primary Care Provider] -
[2016-07-02] MEDS: Heparin 25,000 UNIT/500 ML D5W 25,000 UNIT/500 ML MLS IVC SCH ×2 (00:27→12:03)
[2016-07-02 07:38] LABS: Prothrombin Time 11.3 Seconds (9.4-12.1)
[2016-07-02 07:40] LABS: Activated Partial Thrombo Time 68.6 Seconds (26.0-36.0)
[2016-07-02 07:45] LABS: Alanine Aminotransferase 26 Units/L (0-55); Albumin 3.8 g/dL (3.5-5.0); Albumin/Globulin Ratio 1.2 (1.1-2.2); Alkaline Phosphatase 86 Units/L (38-126); Aspartate Amino Transferase 14 Units/L (5-34); BUN/Creatinine Ratio 10 (6-26); Bilirubin,Total 0.5 mg/dL (0.2-1.2); Blood Urea Nitrogen 9 mg/dL (8-26); Calcium 9.5 mg/dL (8.6-10.8); Carbon Dioxide 22 mEq/L (19-29); Chloride 104 mEq/L (98-109); Globulin 3.2 g/dL (2.4-3.5); Glucose 229 mg/dL (70-99); Hematocrit 46.2 % (37.5-50.1); Hemoglobin 16.9 g/dL (12.9-16.9); Mean Corpuscular HGB Conc 36.6 g/dL (31.6-35.5); Mean Corpuscular Hemoglobin 33.9 pg (28.0-33.3); Mean Corpuscular Volume 92.6 fL (83.0-100.0); Mean Platelet Volume 11.4 fL (9.4-12.4); Osmolality,Calculated 288 (280-300); Platelet Count 143 K/mcL (140-400); Potassium 4.2 mEq/L (3.5-4.5); Red Blood Count 4.99 M/mcL (4.19-5.50); Red Cell Distribution Width 11.5 % (11.5-14.5); Sodium 136 mEq/L (136-145); eGFR For African Americans > 60 (> 60); eGFR For Non-African Americans > 60 (> 60)
[2016-07-02] MEDS: Nicotine 21 MG PATCH.TD24 TD SCH (08:16)
[2016-07-02] MEDS: Insulin LISPRO 300 UNITS/3 ML VIAL SQ SCH ×4 (08:17→22:14)
[2016-07-02] MEDS: Chlorhexidine Rinse 15 ML MOUTHWASH MM SCH ×2 (08:17→22:16)
[2016-07-02] MEDS: Aspirin 81 MG TAB.CHEW PO SCH (08:17)
--- NOTE | 2016-07-02 09:46 | Internal Med Progress Note ---
<Leonel Jarvis - Last Filed: 07/02/16 09:44> Date of Encounter: 07/02/16 Time of Encounter: 09:44 - Assessment and plan (1) NSTEMI (non-ST elevated myocardial infarction) Current Visit: Yes Status: Acute Assessment and plan: patient w/o chest pain. on heparin gtt, beta mauricio, aspirin, statin cath on 06/26 showed severe [address] surgery should receive CABG patient took brillinta thus surgery scheduled for 07/03/16 (2) Diabetes mellitus type II, non insulin dependent Current Visit: Yes Status: Acute Assessment and plan: Continue medium dose SSI (3) Tobacco abuse disorder Current Visit: Yes Status: Chronic Assessment and plan: nicotine patches (4) DVT prophylaxis Current Visit: Yes Status: Acute Assessment and plan: Currently on Heparin ggt - Subjective Interval history: patient denies chest pain/sob. denies f/c/n/v/d. able to have bowel mvmets. - Constitutional Vitals: Temp Pulse Resp BP Pulse Ox 98.0 F 72 15 110/85 95 07/02/16 07:11 07/02/16 07:11 07/02/16 07:11 07/02/16 07:11 07/02/16 07:11 General appearance: Present: cooperative, pleasant, answers questions appropriately - Head Head exam: Present: atraumatic, normocephalic - Eye Eye exam: Present: PERRL, conjuntiva pink, sclera anicteric Pupils: Present: PERRL - Neck Neck exam general surgery: Present: supple, trachea midline. Absent: lymphadenopathy - Respiratory Respiratory exam: Present: CTAB. Absent: rales, rhonchi, wheezes - Cardiovascular Cardiovascular exam: Present: RRR, +S1, +S2. Absent: gallop - GI/Abdominal GI/Abdominal exam: Present: normal bowel sounds, soft, no peritoneal signs. Absent: distended, tenderness - Extremities Exam Extremities exam: Present: warm, radial pulses palpable and symetrical - Neurological Exam Neurological exam: Present: CN II-XII intact, oriented X3, no focal deficits - Skin Skin exam: Present: dry, intact Internal Medicine: Result - Labs CBC & Chem 7: 07/02/16 07:10 07/02/16 07:10 Labs: Short CBC 07/02/16 Range/Units 07:10 WBC 6.9 (4.3-11.1) K/mcL Hgb 16.9 (12.9-16.9) g/dL Hct 46.2 (37.5-50.1) % Plt Count 143 (140-400) K/mcL BMP 07/02/16 07:10 Sodium 136 Potassium 4.2 Chloride 104 Carbon Dioxide 22 BUN 9 Creatinine 0.87 Glucose 229 H Calcium 9.5 Liver Function 07/02/16 Range/Units 07:10 Total Bilirubin 0.5 (0.2-1.2) mg/dL AST 14 (5-34) Units/L ALT 26 (0-55) Units/L Alkaline Phosphatase 86 (38-126) Units/L Albumin 3.8 (3.5-5.0) g/dL - ABG Interpretation ABG results: PT/INR, D-dimer PT 11.3 Seconds (9.4-12.1) 07/02/16 07:10 - VTE Reasons for not Prescribing Prophylaxis: Not indicated-Anticoagulated or INR therapeutic Consult Discharge Plan - Plan Referrals: Jorge Chaidez, [Primary Care Provider] - <Jovani Perdomo - Last Filed: 07/02/16 18:06> - Assessment and plan (1) Non-STEMI (non-ST elevated myocardial infarction) Current Visit: Yes Status: Inactive Assessment and plan: No further symptoms. (2) CAD (coronary artery disease), [place] coronary artery Current Visit: Yes Status: Acute Assessment and plan: CABG tomorrow. Qualifiers: [place] vs. transplanted heart: [place] heart Associated angina: with stable angina Qualified Code(s): I25.118 - Atherosclerotic heart disease of [place] coronary artery with other forms of angina pectoris (3) Diabetes Current Visit: Yes Status: Inactive Qualifiers: Diabetes mellitus type: type 2 Diabetes mellitus complication status: with circulatory complication Diabetes mellitus complication detail: with other circulatory complications Diabetes mellitus chcf insulin use: without chcf use Qualified Code(s): E11.59 - Type 2 diabetes mellitus with other circulatory complications (4) HTN (hypertension) Current Visit: Yes Status: Inactive Qualifiers: Hypertension type: essential hypertension Qualified Code(s): I10 - Essential (primary) hypertension (5) Tobacco abuse disorder Current Visit: Yes Status: Chronic - Constitutional Vitals: Temp Pulse Resp BP Pulse Ox 97.8 F 68 15 112/70 96 07/02/16 16:00 07/02/16 16:00 07/02/16 16:00 07/02/16 16:00 07/02/16 16:00 Internal Medicine: Result - Labs CBC & Chem 7: 07/02/16 07:10 07/02/16 07:10 Labs: Short CBC 07/02/16 Range/Units 07:10 WBC 6.9 (4.3-11.1) K/mcL Hgb 16.9 (12.9-16.9) g/dL Hct 46.2 (37.5-50.1) % Plt Count 143 (140-400) K/mcL BMP 07/02/16 07:10 Sodium 136 Potassium 4.2 Chloride 104 Carbon Dioxide 22 BUN 9 Creatinine 0.87 Glucose 229 H Calcium 9.5 Liver Function 07/02/16 Range/Units 07:10 Total Bilirubin 0.5 (0.2-1.2) mg/dL AST 14 (5-34) Units/L ALT 26 (0-55) Units/L Alkaline Phosphatase 86 (38-126) Units/L Albumin 3.8 (3.5-5.0) g/dL - ABG Interpretation ABG results: PT/INR, D-dimer PT 11.3 Seconds (9.4-12.1) 07/02/16 07:10 - Attending Attestation I examined this patient and my medical decision-making was reviewed with the Resident Physician. I agree with the documented findings, disposition and treatment plan as described except to the extent set forth below. Mr. Perez is currently admitted for acute NSTEMI with triple vessel disease. He is to go to CABG in AM. He remains moderate risk due to potential of cardiac decompensation. Mr. Perez feels OK. He is up for shower today. No further CP or SOB. Exam Alert and comfortable. Heart reg Lungs clear I/P 1. NSTEMI 2. CAD For CABG tomorrow.
[2016-07-03] MEDS: Heparin 25,000 UNIT/500 ML D5W 25,000 UNIT/500 ML MLS IVC SCH ×2 (03:16→19:59)
[2016-07-03] MEDS ORDERED: Tranexamic Acid 1,000 MG/10 ML VIAL ONE ×2 (06:43→09:32)
[2016-07-03] MEDS ORDERED: *HR* Rocuronium Bromide 50 MG/5 ML VIAL ONE (06:43)
[2016-07-03] MEDS ORDERED: *HR* Etomidate 20 MG/10 ML AMPUL IVP ONE (06:43)
[2016-07-03] MEDS ORDERED: Protamine Sulfate 250 MG/25 ML VIAL IVP ONE (06:43)
[2016-07-03] MEDS ORDERED: *HR* Norepinephrine 4 MG/4 ML VIAL IVC ONE (06:43)
[2016-07-03] MEDS ORDERED: Famotidine 20 MG/2 ML VIAL ONE (06:43)
[2016-07-03] MEDS ORDERED: *HR* Phenylephrine 10 MG/ML VIAL ONE (06:43)
[2016-07-03] MEDS ORDERED: *HR* Midazolam HCl 5 MG/5 ML VIAL IVP ONE (06:50)
[2016-07-03] MEDS ORDERED: *HR* FentaNYL (PF) 1,000 MCG/20 ML VIAL ONE (06:50)
[2016-07-03] MEDS ORDERED: Nitroglycerin 25 MG/250 ML INFUS..BTL IVC ONE (06:53)
[2016-07-03] MEDS ORDERED: Insulin Regular, Human 100 UNIT/ML ONE (06:55)
--- NOTE | 2016-07-03 07:14 | Anesthesia Evaluation PreOp ---
Date of Encounter: 07/03/16 Time of Encounter: 07:12 - Past History Cardiac History: [place], Angina, HTN, Hyperlipidemia Pulmonary History: Smoker, Pack/yr (2ppd x years) Other Medical History: Diabetes Type II, GERD Anesthesia History: No Prior Anesthetic Complications (no PSH) Alcohol Use: occasionally Drug use: none Medications and Allergies Acetaminophen [Tylenol] 500 mg PO Q6HR PRN 06/25/16 [History] Allergies No Known Allergies Allergy (Verified 06/24/16 20:35) - Meds/Allergy Pre-op Review Medications Reviewed: Yes Allergies Reviewed: Yes Beta Blockers on Current Med List: Yes Anesthesia Results - Labs 07/02/16 07:10 07/02/16 07:10 - Imaging EKG: report reviewed Chest x-ray: report reviewed Additional studies: Cath shows 3 vessel disease with EF 40-50%, mild MR Anesthesia Exam Selected Entries 07/03/16 04:32 Temperature 98 F Pulse Rate 81 Respiratory Rate 15 Blood Pressure 126/89 O2 Sat by Pulse Oximetry 94 L Height: 68in Weight: 91kg NPO (# of Hours): 8 Pain Scale: 0 Pain Scale Used: Numeric (1 - 10) - HEENT Pupil (Motor): EOMI Mallampati: I Teeth: Edentulous Oral Opening: Greater than 3 - CRITICAL CARE NURSE PRACTITIONER LOC: Oriented CRITICAL CARE NURSE PRACTITIONER Motor: Normal RUE, Normal LUE, Normal RLE, Normal LLE, Normal Face CRITICAL CARE NURSE PRACTITIONER Sensory: Normal: RUE, LUE, RLE, LLE, Face - Cardiac Rhythm: Regular Murmur: None - Pulmonary Breath Sounds: bilateral Clear Respiratory Effort: Symmetrical Anesthesia Assess/Plan ASA Score: 4 Modified Malcolm Scale for Level of Consciousness: Cooperative, oriented, and tranquil Anesthetic Plan: General Autologous Blood: No Monitoring Plan: Standard Monitors, A-Line, PAC, NICOLA Recovery Plan: ICU (Discussed risks of GA, lines, blood, and possible need for NICOLA. Questions answered and agrees to proceed.)
[2016-07-03] MEDS ORDERED: NiCARdipine 2.5 MG/10 ML Syringe IVPB ONE (07:30)
[2016-07-03] MEDS ORDERED: ceFAZolin 2,000 MG in D5% in Water 100 ML IVPB ONE (07:45)
--- NOTE | 2016-07-03 08:46 | Anesthesia Procedures ---
Date of Encounter: 07/03/16 Time of Encounter: 08:00 Procedures: Anesthesia - Arterial Line Consent obtained: written consent Time out performed: Yes Sedation: Versed (mg): 4 Sedation: Fentanyl (mcg): 200 Supplemental Oxygen via Nasal Cannula (L/min): 2 Size (Gauge): 20 Length (inches): 5 Technique Used: sterile prep, guide wire technique, direct puncture technique Post-Procedure: line taped into place Patient tolerated procedure: well, no complications Complications: none Site: Radial L (attempt x 1) - Central Line Placement Right IJ Consent obtained: written consent Time out performed: Yes Patient placed on monitor/pulse ox: Yes MD prep: mask, gown, gloves Central line prep: Chlorhexidine scrub Ultrasound used for placement: Yes Technique: Seldinger Lumen Inserted: Introducer Post procedure: sutured in place, good blood return, all ports aspirated, flushed, capped, sterile dressing applied Patient tolerated procedure: well, no complications Complications: none Comments: attempt x 1. Florence placed with issues. Wedge approx. 54cm
[2016-07-03] MEDS ORDERED: Albumin Human 5% 25.0 GM/500 ML VIAL ONE (09:32)
[2016-07-03] MEDS: Ringers Solution, Lactated 1,000 ML IVC SCH ×2 (10:46→10:47)
[2016-07-03] MEDS ORDERED: *HR* Dextrose 50 % in Water (Syg) 50 ML SYRINGE IVP PRN (11:10)
[2016-07-03] MEDS ORDERED: Ondansetron 4 MG/2 ML VIAL IVP PRN (11:10)
[2016-07-03] MEDS ORDERED: Potassium Chloride 40 MEQ/200 ML BAG IVPB PRN (11:10)
[2016-07-03] MEDS ORDERED: Magnesium Sulfate 2 GM in D5% in Water 100 ML IVPB PRN (11:10)
[2016-07-03] MEDS ORDERED: Calcium Chloride 1,000 MG in 0.9 % Sodium Chloride 100 ML IVPB PRN (11:10)
[2016-07-03] MEDS ORDERED: Insulin Regular, Human 100 UNIT/ML IV PRN (11:10)
[2016-07-03] MEDS ORDERED: Acetaminophen 650 MG RECTAL SUPP RC PRN (11:10)
[2016-07-03] MEDS ORDERED: Insulin Human Regular 100 UNIT in 0.9 % Sodium Chloride 100 ML IV SCH (11:15)
[2016-07-03] MEDS ORDERED: Norepinephrine 4 MG in D5% in Water 250 ML IVC SCH (11:15)
[2016-07-03] MEDS ORDERED: niCARdipine 40 MG/200 ML MLS IVC SCH (11:15)
[2016-07-03] MEDS ORDERED: *HR* Morphine 2 MG/ML SYRINGE IVP PRN (11:20)
--- NOTE | 2016-07-03 11:22 | Operative Note ---
Date of procedure: 07/03/16 Pre-op diagnosis: NSTEMI Post-op diagnosis: same Procedure: 1. CABG 3 (ARELLANO to LAD, SVG to OM1, SVG to PDA). 2. Endoscopic vein harvesting, greater saphenous vein from right lower extremity. Implants: None. Complications: None. Anesthesia: [place] Surgeon: Trey Sawant Electron Gun Assembler: Rodolfo Madrid Specimen: None. Condition: stable Disposition: ICU Procedure in Detail: INDICATIONS FOR OPERATION: Patient is a 41-year-old type II diabetic, hypertensive man with hypercholesterolemia who was admitted to [facility] on June 25, 2016 with complaints of sudden onset of substernal chest pain radiating to his back. The pain awoke him from sleep and lasted for several minutes prior to him contacted the emergency medical services. The patient describes similar exertional substernal chest pain during the last 6 months however they improved with rest. The pain that he experienced upon admission did not resolve. The patient denied any shortness of breath, dyspnea on exertion , diaphoresis, nausea, or vomiting. In the emergency room the patient was found to have elevated troponin I levels consistent with an acute non-STEMI. He was treated medically with resolution of this pain. The patient was admitted for further cardiac workup. An echocardiogram revealed an LVEF 50-55%. Subsequent cardiac catheterization revealed severe 3 vessel CAD. In particular, the patient was found to have a 60 % proximal LAD lesion, a 50% proximal D1 lesion (small vessel), a 60-70% mid LCx lesion, a 70% proximal RCA lesion, a 90% distal RCA lesion, and a completely occluded right posterior lateral branch. The patient was recommended for CABG. Unfortunately, the patient had been given Brilinta during the acute coronary event and required several days for the antiplatelet effect to resolve. The patient then underwent CABG on Sunday, July 03, 2016. FINDINGS AT OPERATION: The aorta was of normal caliber without calcification. The coronary arteries measure approximately 2-3 mm in diameter and had mild distal disease. The greater saphenous vein was harvested endoscopically from the right lower extremity from the knee to the groin and was of good quality. The total bypass time was 75 minutes, cross-clamp time 41 minutes, intentional hypothermia 35C. DESCRIPTION OF OPERATION: After obtaining informed operative consent from the patient, he was taken to the operating room where satisfactory general tracheal anesthetic was induced. Appropriate monitoring lines were placed, and the patient's chest, abdomen, and lower extremities were prepped and draped in a sterile fashion. The greater saphenous vein was harvested endoscopically from the right lower extremity from the knee to the groin. The vein was removed, distended, and found to be of good quality. The subcutaneous tissue and skin edges were reapproximated using running Vicryl sutures. Simultaneously a standard median sternotomy incision was made and the sternum divided. The ARELLANO was taken out from its bed and side branches divided between hemoclips. The sternum was and the pericardium opened and reflected laterally. The patient was prepared for cannulation by placing purse string sutures in the distal ascending aorta, mid-ascending aorta, and right atrial appendage. The patient was heparinized and was placed he was greater than 200 seconds, the aorta was cannulated followed by placement of a dual stage venous cannula to the right atrial appendage and into the IVC. A stab-in antegrade metabolic and was placed in the mid-ascending aorta. The patient was placed on bypass and the temperature allowed to drift to 35C. The distal targets were identified and the aorta was crossclamped. The patient received 700 mL of cold antegrade crystalloid cardioplegia and the patient's heart appeared rapid diastolic arrest. The PDA was then opened with a [place] blade and the vein was anastomosed in an end-to-side fashion using a running 7-0 Prolene suture. The anastomosis found to be hemostatic and the patient received another dose cold antegrade crystalloid cardioplegia through the aortic root. The OM1 branch was opened. Bleeding the vein was anastomosed in an end-to-side fashion using a running 7-0 Prolene suture. An anastomosis was found to be hemostatic. The lady was opened with a Walthall blade in the ARELLANO was anastomosed in an end-to-side fashion to the LAD using running 7-0 Prolene suture. The anastomosis found to be hemostatic and the mammary pedicle was tacked to the epicardium using interrupted 5-0 silk suture. Rewarming was begun during this anastomosis. The aortic cross-clamp was released and the heart distended. The veins were then measured and cut at appropriate lengths. A partial occluding clamp was then placed across the midascending aorta and the antegrade cardioplegia cannula was removed. An additional aortotomy site was then made with 11 blade and both sites were enlarged with a 4 mm punch. The veins were then anastomosed in an end-to-side fashion to the aorta using a running 5-0 Prolene suture. The vein grafts were occluded with a bulldog clamp and de-aired with a 25-gauge needle prior to removing the partial occluding clamp. The proximal distal anastomoses were found to be hemostatic. The proximal anastomoses were marked with radiopaque loops. Two right ventricular temporary epicardial pacing leads were placed, and 3 chest was replaced, 2 in the mediastinum one to the left pleural space. During rewarming the patient's heart rhythm degenerated to ventricular fibrillation and required 2 10 J direct- current shocks in order to regain normal sinus rhythm. When the patient's systemic temperature reached 36C, he was ventilated and received volume. Protamine was then measured and the aortic and venous cannula was removed. The pursestring sutures were secured and the venous cannulation site was reinforced with a running 4-0 Prolene suture. The pericardium was loosely approximated in the midline, and the sternum was reapproximated using sternal wires. The pectoralis major fascia, rectus abdominis fascia, subcutaneous tissue, and skin edges were reapproximated using running Vicryl sutures. A negative pressure dressing was applied to the sternotomy incision. The patient was then transferred to the ICU in satisfactory postoperative condition. There were no intraoperative complications, and the instrument, needle, and sponge count were correct at the end of operation. - Open Heart Detail KENDALL (Internal Mammary Artery) Usage: Yes Cardiopulmonary Bypass Time (mins): 75 Aortic Cross Clamp Time (mins): 41 Intentional Hypothermia Temperature (C.): 35
[2016-07-03 11:36] LABS: ABG PCO2 48 mmHg (35-45); ABG PH 7.25 pH Units (7.32-7.45); ABG PO2 216 mmHg (85-104)
[2016-07-03 11:37] LABS: ABG Base Excess -6.3 mEq/L (-2.0 to 3.0); ABG Glucose 181 mg/dL (60-95); ABG Hematocrit 41 % (35-51); ABG Ionized Calcium 0.77 mmol/L (1.15-1.35); ABG Oxygen Saturation 100 % (95-98); ABG TCO2 22.5 mEq/L (20-26)
[2016-07-03 11:40] LABS: ABG Base Excess -6.7 mEq/L (-2.0 to 3.0); ABG HCO3 20.2 mEQ/L (21-27); ABG Oxygen Saturation 99 % (95-98); ABG PCO2 45 mmHg (35-45); ABG PH 7.26 pH Units (7.32-7.45); ABG PO2 164 mmHg (85-104); ABG TCO2 21.6 mEq/L (20-26)
[2016-07-03 11:41] LABS: ABG Glucose 128 mg/dL (60-95); ABG Hematocrit 35 % (35-51)
[2016-07-03 11:43] LABS: ABG PH 7.43 pH Units (7.32-7.45)
[2016-07-03 11:44] LABS: ABG Base Excess 2.6 mEq/L (-2.0 to 3.0); ABG HCO3 27.2 mEQ/L (21-27); ABG PCO2 41 mmHg (35-45); ABG PO2 495 mmHg (85-104); ABG TCO2 28.5 mEq/L (20-26)
[2016-07-03 11:45] LABS: ABG Glucose 193 mg/dL (60-95); ABG Hematocrit 30 % (35-51); ABG Ionized Calcium 0.96 mmol/L (1.15-1.35); ABG Oxygen Saturation 100 % (95-98)
[2016-07-03 11:46] LABS: ABG PCO2 38 mmHg (35-45); ABG PH 7.46 pH Units (7.32-7.45); ABG PO2 444 mmHg (85-104)
[2016-07-03 11:47] LABS: ABG Hematocrit 30 % (35-51); ABG Oxygen Saturation 100 % (95-98); ABG TCO2 28.2 mEq/L (20-26)
[2016-07-03 11:48] LABS: ABG Glucose 196 mg/dL (60-95); ABG Ionized Calcium 1.01 mmol/L (1.15-1.35)
[2016-07-03 11:50] LABS: ABG Base Excess 2.9 mEq/L (-2.0 to 3.0); ABG Glucose 174 mg/dL (60-95); ABG HCO3 27.1 mEQ/L (21-27); ABG Hematocrit 34 % (35-51); ABG Ionized Calcium 1.01 mmol/L (1.15-1.35); ABG Oxygen Saturation 100 % (95-98); ABG PCO2 39 mmHg (35-45); ABG PH 7.45 pH Units (7.32-7.45); ABG PO2 475 mmHg (85-104); ABG TCO2 28.3 mEq/L (20-26)
[2016-07-03] MEDS ORDERED: *HR* Heparin 10,000 UNIT/10 ML VIAL IV ONE (12:16)
[2016-07-03] MEDS ORDERED: Sodium Bicarbonate 50 MEQ/50 ML VIAL IVC ONE (12:16)
[2016-07-03] MEDS ORDERED: *HR* Phenylephrine 10 MG/ML VIAL IVC ONE (12:16)
[2016-07-03] MEDS ORDERED: Mannitol 25% vial 12.5 GM/50 ML VIAL IVP ONE (12:16)
[2016-07-03] MEDS ORDERED: *HR* Magnesium Sulfate 2 GM/50 ML PIGGYBACK IVPB ONE (12:16)
[2016-07-03] MEDS ORDERED: Lidocaine 2% Syringe 100 MG/5 ML IV ONE (12:16)
[2016-07-03] MEDS ORDERED: Albumin Human 25% 25 GM/100 ML IV.SOLN IV ONE (12:16)
[2016-07-03 12:18] LABS: Mean Corpuscular Hemoglobin 33.4 pg (28.0-33.3)
[2016-07-03 12:20] LABS: ABG Base Excess 2.2 mEq/L (-2.0 to 3.0); ABG HCO3 29.1 mEQ/L (21-27); ABG Oxygen Saturation 100 % (95-98); ABG PCO2 54 mmHg (35-45); ABG PO2 277 mmHg (85-104); ABG TCO2 30.8 mEq/L (20-26); Basophils # 0.1 K/mcL (0.0-0.2); Basophils % 0.6 %; Blood Gas FiO2 80 %; Eosinophils # 0.4 K/mcL (0.0-0.6); Eosinophils % 2.7 %; Hematocrit 39.7 % (37.5-50.1); Immature Granulocytes % 0.4 % (0-4); Immature Platelets 7.3 % (1.1-6.1); Lymphocytes % 21.8 %; Mean Corpuscular Volume 92.8 fL (83.0-100.0); Mean Platelet Volume 11.1 fL (9.4-12.4); Monocytes # 0.8 K/mcL (0.0-1.3); Monocytes % 6.1 %; Red Blood Count 4.28 M/mcL (4.19-5.50); Red Cell Distribution Width 11.7 % (11.5-14.5); Segmented Neutrophils % 68.4 %
[2016-07-03 12:22] LABS: ABG PH 7.34 pH Units (7.32-7.45)
[2016-07-03 12:23] LABS: INR 1.4; Prothrombin Time 15.7 Seconds (9.4-12.1)
[2016-07-03 12:27] LABS: Activated Partial Thrombo Time 34.2 Seconds (26.0-36.0)
[2016-07-03 12:30] LABS: BUN/Creatinine Ratio 11 (6-26); Blood Urea Nitrogen 9 mg/dL (8-26); Carbon Dioxide 26 mEq/L (19-29); Chloride 109 mEq/L (98-109); Glucose 123 mg/dL (70-99); Osmolality,Calculated 294 (280-300); Sodium 142 mEq/L (136-145); eGFR For African Americans > 60 (> 60); eGFR For Non-African Americans > 60 (> 60)
[2016-07-03] MEDS: 0.9 % Sodium Chloride w KCl 20 MEQ/1,000 ML MLS IVC SCH (12:47)
[2016-07-03] MEDS: Ketorolac 15 MG/ML VIAL IVP SCH ×3 (12:47→23:00)
[2016-07-03] MEDS: Metoclopramide 10 MG/2 ML VIAL IVP SCH ×3 (12:47→23:00)
[2016-07-03] MEDS: Nitroglycerin 25 MG/250 ML INFUS..BTL IVC SCH ×2 (12:49→19:07)
[2016-07-03] MEDS: Aspirin 81 MG TAB.CHEW PO SCH (12:50)
[2016-07-03] MEDS: Insulin LISPRO 300 UNITS/3 ML VIAL SQ SCH ×3 (12:50→19:07)
[2016-07-03] MEDS: Nicotine 21 MG PATCH.TD24 TD SCH (12:50)
[2016-07-03 12:52] LABS: Hemoglobin 14.3 g/dL (12.9-16.9); Neutrophils # 9.4 K/mcL (1.6-8.9); Platelet Count 94 K/mcL (140-400)
[2016-07-03 12:53] LABS: Platelet Estimate Slight Decrease (Normal)
[2016-07-03] MEDS: *HR* Morphine 2 MG/ML SYRINGE IVP PRN ×3 (14:06→22:38)
[2016-07-03] MEDS ORDERED: 0.9 % Sodium Chloride 250 ML ONE (14:49)
[2016-07-03 15:40] LABS: ABG Base Excess 0.7 mEq/L (-2.0 to 3.0); ABG HCO3 27.1 mEQ/L (21-27); ABG Oxygen Saturation 99 % (95-98); ABG PCO2 49 mmHg (35-45); ABG PO2 160 mmHg (85-104); ABG TCO2 28.6 mEq/L (20-26)
[2016-07-03 15:41] LABS: Blood Gas FiO2 50 %
[2016-07-03 15:44] LABS: ABG PH 7.35 pH Units (7.32-7.45)
--- NOTE | 2016-07-03 16:36 | Electrocardiograph Report ---
[facility] Test Date: 2016-07-03 Pat Name: Victoriano Perez Department: 109 Room: [facility] Gender: M Starch Dumper: NICHOLAS : 1975 Requested By: Trey Sawant Order Number: [id number] Reading MD: Leonardo Vasquez DO Measurements Intervals [place] Rate: 92 P: SC: 0 QRS: 74 QRSD: 106 T: -54 QT: 379 QTc: 429 Interpretive Statements Sinus rhythm Inferior myocardial infarction, possibly recent lateral ST-T chagnes possibly due to ischemia Electronically Signed On 07-03-16 16:35:55 EST by Leonardo Vasquez DO
[2016-07-03] MEDS: ceFAZolin 2,000 MG in D5% in Water 100 ML IVPB SCH ×2 (16:39→23:00)
[2016-07-03] MEDS: *HR* OxyCODONE/APAP 5/325 TABLET PO PRN (17:58)
[2016-07-03] MEDS: Chlorhexidine Rinse 15 ML MOUTHWASH MM SCH (19:57)
[2016-07-03 20:22] LABS: ABG Base Excess 4.4 mEq/L (-2.0 to 3.0); ABG HCO3 31.5 mEQ/L (21-27); ABG Oxygen Saturation 94 % (95-98); ABG PCO2 57 mmHg (35-45); ABG PO2 74 mmHg (85-104); ABG TCO2 33.2 mEq/L (20-26); Blood Gas FiO2 24 %
[2016-07-03 20:23] LABS: ABG PH 7.35 pH Units (7.32-7.45)
[2016-07-04] MEDS: Nitroglycerin 25 MG/250 ML INFUS..BTL IVC SCH (02:01)
[2016-07-04 02:53] LABS: Basophils # 0.1 K/mcL (0.0-0.2); Basophils % 0.5 %; Eosinophils # 0.1 K/mcL (0.0-0.6); Eosinophils % 0.5 %; Hematocrit 38.6 % (37.5-50.1); Hemoglobin 13.6 g/dL (12.9-16.9); Immature Granulocytes % 0.4 % (0-4); Lymphocytes # 1.7 K/mcL (0.6-4.6); Lymphocytes % 17.8 %; Mean Corpuscular HGB Conc 35.2 g/dL (31.6-35.5); Mean Corpuscular Hemoglobin 33.7 pg (28.0-33.3); Mean Corpuscular Volume 95.5 fL (83.0-100.0); Mean Platelet Volume 11.2 fL (9.4-12.4); Monocytes # 0.9 K/mcL (0.0-1.3); Monocytes % 9.1 %; Neutrophils # 6.9 K/mcL (1.6-8.9); Platelet Count 116 K/mcL (140-400); Red Blood Count 4.04 M/mcL (4.19-5.50); Segmented Neutrophils % 71.7 %
[2016-07-04 02:59] LABS: INR 1.3
[2016-07-04 03:02] LABS: Activated Partial Thrombo Time 31.1 Seconds (26.0-36.0)
[2016-07-04 03:05] LABS: BUN/Creatinine Ratio 12 (6-26); Blood Urea Nitrogen 11 mg/dL (8-26); Calcium 8.5 mg/dL (8.6-10.8); Carbon Dioxide 25 mEq/L (19-29); Chloride 109 mEq/L (98-109); Glucose 144 mg/dL (70-99); Magnesium 2.1 mg/dL (1.6-2.6); Osmolality,Calculated 296 (280-300); Potassium 4.5 mEq/L (3.5-4.5); eGFR For African Americans > 60 (> 60); eGFR For Non-African Americans > 60 (> 60)
[2016-07-04 03:06] LABS: Prothrombin Time 13.6 Seconds (9.4-12.1)
[2016-07-04 03:15] LABS: Sodium 142 mEq/L (136-145)
[2016-07-04] MEDS: Metoclopramide 10 MG/2 ML VIAL IVP SCH ×3 (05:01→18:17)
[2016-07-04] MEDS: Ketorolac 15 MG/ML VIAL IVP SCH ×3 (05:02→18:17)
--- NOTE | 2016-07-04 06:20 | Cardiothoracic Progress Note ---
Date of Encounter: 07/04/16 Time of Encounter: 06:18 - Assessment and plan (1) CAD (coronary artery disease), [place] coronary artery Current Visit: Yes Status: Acute The patient is doing well after his CABG3. He is extubated and breathing comfortably. He is neurologically intact and has no complaints. The arterial line, Tse catheter, and [place] catheter will be removed. He will be transferred to the stepdown unit later today. The assessment and plan as outlined above was discussed with the patient and/or family members who expressed understanding and agreement. All questions were answered. Qualifiers: [place] vs. transplanted heart: [place] heart Associated angina: with stable angina Qualified Code(s): I25.118 - Atherosclerotic heart disease of [place] coronary artery with other forms of angina pectoris - Subjective Procedure(s) Performed: POD #1 S/P CABG3 Interval history: The patient has remained hemodynamically stable overnight. He is extubated and breathing comfortably. He has no complaints. Vital Signs, Last 4 Hours Temp Pulse Resp BP Pulse Ox 07/04/16 06:06 111 16 107/54 92 L 07/04/16 05:00 100.7 F H 108 20 106/65 94 L 07/04/16 04:31 18 92 L 07/04/16 04:00 100.4 F H 111 18 124/70 95 07/04/16 03:00 100.1 F H 107 16 113/72 92 L 07/04/16 02:57 101 Oxgyen Flow Rate Oxygen Flow Rate (LPM) 1 Clinical Data, last 8 Hours Output, Chest Tube Drainage 20 Amount [Mediastinal #2] Output, Chest Tube Drainage 5 Amount [Mediastinal #2] Output, Chest Tube Drainage 5 Amount [Mediastinal #2] Output, Chest Tube Drainage 5 Amount [Mediastinal #2] Output, Chest Tube Drainage 5 Amount [Mediastinal #2] Output, Chest Tube Drainage 40 Amount [Mediastinal #1] Output, Chest Tube Drainage 5 Amount [Mediastinal #1] Output, Chest Tube Drainage 40 Amount [Mediastinal #1] Output, Chest Tube Drainage 10 Amount [Mediastinal #1] Output, Chest Tube Drainage 20 Amount [Mediastinal #1] Output, Chest Tube Drainage 20 Amount [Mediastinal #1] Output, Chest Tube Drainage 20 Amount [Mediastinal #1] Output, Chest Tube Drainage 20 Amount [Mediastinal #1] Weight 07/02/16 07/03/16 07/04/16 23:59 23:59 23:59 Weight 93.4 kg 93.1 kg - Physical Examination General: Conversant, No Apparent Distress Neck: No JVD, Normal carotid pulses Cardiac: Reg Rate and Rhythm, Normal S1 and S2, No Murmur Incision: No signs of infection, Dry/intact dressing Sternum: Stable Chest tubes: Minimal drainage, Other (No air leak.) Lungs: Normal Breath Sounds, No Wheeze, Rales, Rhonchi Neuro: Alert and responsive, No focal deficits noted Vascular: Normal capillary refill Musculoskeletal: No Chest Wall Tenderness Extremities: No Clubbing, No Cyanosis, No Edema - Labs 07/04/16 02:45 07/04/16 02:45 Lab Results, Last 24 hours 07/03/16 07/03/16 07/03/16 12:13 12:13 12:13 WBC 13.8 H D Hgb 14.3 D Hct 39.7 Plt Count 94 L INR 1.4 APTT 34.2 D Sodium 142 Potassium 4.0 Chloride 109 Carbon Dioxide 26 BUN 9 Creatinine 0.81 Glucose 123 H Calcium 9.0 Magnesium 3.0 H 07/04/16 07/04/16 07/04/16 02:45 02:45 02:45 WBC 9.6 Hgb 13.6 Hct 38.6 Plt Count 116 L INR 1.3 APTT 31.1 Sodium 142 Potassium 4.5 Chloride 109 Carbon Dioxide 25 BUN 11 Creatinine 0.93 Glucose 144 H Calcium 8.5 L Magnesium 2.1 - Imaging Chest Xray: image reviewed (No pneumothorax. Minimal atelectasis/infiltrates.) - VTE Reasons for not Prescribing Prophylaxis: Not indicated-Anticoagulated or INR therapeutic Documentation of Mechanical Device: Graduated compression elastic hosiery Consult Discharge Plan - Plan Referrals: Jorge Chaidez DO [Primary Care Provider] -
[2016-07-04] MEDS ORDERED: *HR* Dextrose 50 % in Water (Syg) 50 ML SYRINGE IVP PRN ×2 (06:29→08:55)
[2016-07-04] MEDS: Chlorhexidine Rinse 15 ML MOUTHWASH MM SCH ×3 (07:56→20:11)
[2016-07-04] MEDS: Aspirin 81 MG TAB.CHEW PO SCH ×2 (07:56→09:35)
[2016-07-04] MEDS: Nicotine 21 MG PATCH.TD24 TD SCH ×2 (07:58→09:37)
[2016-07-04] MEDS: Insulin LISPRO 300 UNITS/3 ML VIAL SQ SCH ×4 (07:58→20:19)
[2016-07-04] MEDS: 0.9 % Sodium Chloride w KCl 20 MEQ/1,000 ML MLS IVC SCH (07:58)
[2016-07-04] MEDS ORDERED: Heparin 1,000 UNITS/500 mL NS 500 ML ONE (08:13)
[2016-07-04] MEDS: *HR* OxyCODONE/APAP 5/325 TABLET PO PRN ×2 (08:21→16:13)
[2016-07-04] MEDS ORDERED: *HR* Morphine 2 MG/ML SYRINGE IVP PRN (08:55)
[2016-07-04] MEDS ORDERED: Acetaminophen 325 MG TABLET PO PRN (08:55)
[2016-07-04] MEDS ORDERED: Ondansetron 4 MG/2 ML VIAL IVP PRN (08:55)
[2016-07-04] MEDS ORDERED: Insulin Regular, Human 100 UNIT/ML IV PRN (08:55)
[2016-07-04] MEDS ORDERED: D5% in Water 1,000 ML IV PRN (08:55)
[2016-07-04] MEDS ORDERED: Dextrose Gel 15 GM PO PRN ×2 (08:55)
[2016-07-04] MEDS ORDERED: Naloxone 0.4 MG/ML INJ IVP PRN (08:55)
[2016-07-04] MEDS ORDERED: Aspirin Enteric Coated 81 MG Tablet PO SCH (09:00)
[2016-07-04] MEDS ORDERED: Pantoprazole 40 MG VIAL IVP SCH ×2 (09:00)
[2016-07-04] MEDS ORDERED: Furosemide 20 MG/2 ML VIAL IVP SCH (09:00)
[2016-07-04] MEDS: Furosemide 20 MG/2 ML VIAL IVP SCH ×2 (09:36→16:14)
[2016-07-04] MEDS: Potassium Chloride Elixir 20 MEQ/15 ML UDC PO SCH ×2 (09:37→20:09)
[2016-07-04] MEDS: *HR* Morphine 2 MG/ML SYRINGE IVP PRN ×2 (12:17→22:26)
[2016-07-04] MEDS: Insulin Human Regular 100 UNIT in 0.9 % Sodium Chloride 100 ML IV SCH (16:07)
[2016-07-04] MEDS: *HR* Heparin 5,000 UNIT/ML VIAL SQ SCH (18:17)
[2016-07-05] MEDS: Ketorolac 15 MG/ML VIAL IVP SCH ×5 (00:23→23:35)
[2016-07-05] MEDS: Metoclopramide 10 MG/2 ML VIAL IVP SCH ×5 (00:23→23:35)
[2016-07-05 04:13] LABS: Hemoglobin 12.5 g/dL (12.9-16.9); Red Cell Distribution Width 11.9 % (11.5-14.5)
[2016-07-05 04:15] LABS: Hematocrit 35.4 % (37.5-50.1); Immature Platelets 7.1 % (1.1-6.1); Mean Corpuscular HGB Conc 35.3 g/dL (31.6-35.5); Mean Corpuscular Volume 96.2 fL (83.0-100.0); Red Blood Count 3.68 M/mcL (4.19-5.50)
[2016-07-05 04:24] LABS: BUN/Creatinine Ratio 19 (6-26); Blood Urea Nitrogen 15 mg/dL (8-26); Calcium 8.9 mg/dL (8.6-10.8); Carbon Dioxide 28 mEq/L (19-29); Chloride 105 mEq/L (98-109); Glucose 189 mg/dL (70-99); Osmolality,Calculated 294 (280-300); Potassium 4.2 mEq/L (3.5-4.5); Sodium 139 mEq/L (136-145); eGFR For African Americans > 60 (> 60); eGFR For Non-African Americans > 60 (> 60)
[2016-07-05] MEDS: *HR* OxyCODONE/APAP 5/325 TABLET PO PRN (06:10)
[2016-07-05] MEDS: *HR* Heparin 5,000 UNIT/ML VIAL SQ SCH ×2 (06:12→16:54)
[2016-07-05] MEDS: Potassium Chloride Elixir 20 MEQ/15 ML UDC PO SCH ×2 (07:37→20:56)
[2016-07-05] MEDS: Chlorhexidine Rinse 15 ML MOUTHWASH MM SCH ×2 (07:37→20:56)
[2016-07-05] MEDS: Aspirin 81 MG TAB.CHEW PO SCH (07:38)
[2016-07-05] MEDS: Furosemide 20 MG/2 ML VIAL IVP SCH ×2 (07:39→16:54)
[2016-07-05] MEDS: Nicotine 21 MG PATCH.TD24 TD SCH (07:39)
[2016-07-05] MEDS: Insulin Human Regular 100 UNIT in 0.9 % Sodium Chloride 100 ML IV SCH (07:40)
--- NOTE | 2016-07-05 07:40 | Cardiothoracic Progress Note ---
Date of Encounter: 07/05/16 Time of Encounter: 07:38 - Assessment and plan (1) CAD (coronary artery disease), [place] coronary artery Current Visit: Yes Status: Acute The patient is doing well after his CABG3. Chest tubes were removed. He will begin ambulating the hallways today. The assessment and plan as outlined above was discussed with the patient and/or family members who expressed understanding and agreement. All questions were answered. Qualifiers: [place] vs. transplanted heart: [place] heart Associated angina: with stable angina Qualified Code(s): I25.118 - Atherosclerotic heart disease of [place] coronary artery with other forms of angina pectoris - Subjective Procedure(s) Performed: POD #2 S/P CABG3 Interval history: The patient is resting comfortably in his hospital bed. He has no complaints. Vital Signs, Last 4 Hours Temp Pulse Resp BP Pulse Ox 07/05/16 04:43 16 91 L 07/05/16 04:05 97.8 F 98 14 125/94 95 Oxgyen Flow Rate Oxygen Flow Rate (LPM) 2 Clinical Data, last 8 Hours Output, Chest Tube Drainage 0 Amount [Mediastinal #2] Output, Chest Tube Drainage 6 Amount [Mediastinal #2] Output, Chest Tube Drainage 20 Amount [Mediastinal #1] Output, Chest Tube Drainage 20 Amount [Mediastinal #1] Weight 07/03/16 07/04/16 07/05/16 23:59 23:59 23:59 Weight 93.1 kg 92.7 kg 92.1 kg - Physical Examination General: Conversant, No Apparent Distress Neck: No JVD, Normal carotid pulses Cardiac: Reg Rate and Rhythm, Normal S1 and S2, No Murmur Incision: No signs of infection, Dry/intact dressing Sternum: Stable Chest tubes: Minimal drainage Pacing Wires: In place Lungs: Normal Breath Sounds Neuro: Alert and responsive, No focal deficits noted Vascular: Normal capillary refill Musculoskeletal: No Chest Wall Tenderness Extremities: No Clubbing, No Cyanosis, No Edema - Labs 07/05/16 03:44 07/05/16 03:44 Lab Results, Last 24 hours 07/05/16 07/05/16 03:44 03:44 WBC 8.2 Hgb 12.5 L Hct 35.4 L Plt Count 111 L Sodium 139 Potassium 4.2 Chloride 105 Carbon Dioxide 28 BUN 15 Creatinine 0.77 Glucose 189 H Calcium 8.9 - VTE Reasons for not Prescribing Prophylaxis: Not indicated-Anticoagulated or INR therapeutic Documentation of Mechanical Device: Graduated compression elastic hosiery Consult Discharge Plan - Plan Referrals: Jorge Chaidez DO [Primary Care Provider] -
[2016-07-05] MEDS: Insulin LISPRO 300 UNITS/3 ML VIAL SQ SCH ×4 (07:48→20:57)
--- NOTE | 2016-07-05 13:56 | Anesthesia Evaluation Post Op ---
Date of Encounter: 07/05/16 Time of Encounter: 13:55 - Vital Signs Vital Signs: Selected Entries 07/05/16 11:02 07/05/16 11:56 Temperature 98 F Pulse Rate 94 Respiratory Rate 16 Blood Pressure 117/77 O2 Sat by Pulse Oximetry 94 L Oxygen Flow Rate (LPM) 3 - Lungs Lungs: Clear Ascult./Percussion - Airway Airway: Non-obstructed - Cardiovascular Regular Rate - Mental Status Mental Status: Alert & Oriented, Answers Appropriately - Pain Pain Scale: 1 Pain Scale used: Numeric (1 - 10) - Nausea Vomiting Nausea Vomiting: Not Present - Hydration Hydration: Tolerates oral liquids, Able to void Notes: 07/05/16 13:56 No apparent anesthesia side effects.
--- NOTE | 2016-07-05 17:00 | Internal Med Progress Note ---
Date of Encounter: 07/05/16 Time of Encounter: 16:58 - Assessment and plan (1) Constipation Current Visit: Yes Status: Acute Assessment and plan: colace Mirlax . Senna 1 tablet DAILY Qualifiers: Constipation type: slow transit constipation Qualified Code(s): K59.01 - Slow transit constipation (2) Physical deconditioning Current Visit: Yes Status: Acute Assessment and plan: PT/OT . ambulate (3) CAD (coronary artery disease), [place] coronary artery Current Visit: Yes Status: Acute Assessment and plan: S/P Cabg, vital signs stable . Qualifiers: [place] vs. transplanted heart: [place] heart Associated angina: with stable angina Qualified Code(s): I25.118 - Atherosclerotic heart disease of [place] coronary artery with other forms of angina pectoris (4) Diabetes mellitus type II, non insulin dependent Current Visit: Yes Status: Acute Assessment and plan: Continue medium dose SSI (5) Atelectasis Current Visit: Yes Status: Acute Assessment and plan: Counseling on Incentive spirometry - Time Spent With Patient less than 15 minutes - Subjective Interval history: Patient is feeling better , He complains of constipation . Patient admitted with non-ST facial myocardial infarction and status post CABG3. Chest tubes were removed. - Constitutional Vitals: Temp Pulse Resp BP Pulse Ox 97.9 F 101 18 123/87 93 L 07/05/16 15:46 07/05/16 15:46 07/05/16 16:29 07/05/16 15:46 07/05/16 16:29 General appearance: Present: cooperative, pleasant, answers questions appropriately - Head Head exam: Present: atraumatic, normocephalic - Eye Eye exam: Present: conjuntiva pink, sclera anicteric Pupils: Present: PERRL - Neck Neck exam general surgery: Present: supple, trachea midline - Respiratory Respiratory exam: Present: decreased breath sounds. Absent: accessory muscle use, rales, rhonchi, wheezes - Cardiovascular Cardiovascular exam: Present: RRR, +S1, +S2. Absent: diastolic murmur, gallop, rubs, systolic murmur - GI/Abdominal GI/Abdominal exam: Present: hypoactive bowel sounds, soft, no peritoneal signs. Absent: distended, tenderness - Extremities Exam Extremities exam: Present: warm, radial pulses palpable and symetrical. Absent : calf tenderness, cyanotic, pedal edema - Neurological Exam Neurological exam: Present: no focal deficits. Absent: pronater drift, facial droop, speech deficit - Skin Skin exam: Present: dry Internal Medicine: Result - Labs CBC & Chem 7: 07/05/16 03:44 07/05/16 03:44 Labs: Short CBC 07/05/16 Range/Units 03:44 WBC 8.2 (4.3-11.1) K/mcL Hgb 12.5 L (12.9-16.9) g/dL Hct 35.4 L (37.5-50.1) % Plt Count 111 L (140-400) K/mcL BMP 07/05/16 03:44 Sodium 139 Potassium 4.2 Chloride 105 Carbon Dioxide 28 BUN 15 Creatinine 0.77 Glucose 189 H Calcium 8.9 - ABG Interpretation ABG results: ABG ABG pH 7.35 pH Units (7.32-7.45) 07/03/16 20:12 ABG pCO2 57 mmHg (35-45) H 07/03/16 20:12 ABG pO2 74 mmHg (85-104) L 07/03/16 20:12 ABG O2 Saturation 94 % (95-98) L 07/03/16 20:12 PT/INR, D-dimer PT 13.6 Seconds (9.4-12.1) H 07/04/16 02:45 - VTE Reasons for not Prescribing Prophylaxis: Not indicated-Anticoagulated or INR therapeutic Documentation of Mechanical Device: Graduated compression elastic hosiery Consult Discharge Plan - Plan Referrals: Mayelin Del Real CNP [Advanced Practice Nurse] - 07/12/16 10:30 am Trey Sawant MD [Partnered Physician] - 08/17/16 1:00 pm Jorge Chaidez DO [Primary Care Provider] - Leonardo Vasquez DO [Partnered Physician] - (SENT REQUEST ON 07-05-16 @ 0900)
[2016-07-06] MEDS: *HR* Heparin 5,000 UNIT/ML VIAL SQ SCH ×2 (05:36→16:50)
[2016-07-06] MEDS: Ketorolac 15 MG/ML VIAL IVP SCH ×3 (05:37→16:49)
[2016-07-06] MEDS: Metoclopramide 10 MG/2 ML VIAL IVP SCH ×2 (05:55→11:24)
[2016-07-06] MEDS: Chlorhexidine Rinse 15 ML MOUTHWASH MM SCH ×2 (08:04→21:03)
[2016-07-06] MEDS: Aspirin 81 MG TAB.CHEW PO SCH (08:05)
[2016-07-06] MEDS: Furosemide 20 MG/2 ML VIAL IVP SCH ×2 (08:05→16:44)
[2016-07-06] MEDS: Potassium Chloride Elixir 20 MEQ/15 ML UDC PO SCH ×2 (08:05→21:03)
[2016-07-06] MEDS: Insulin LISPRO 300 UNITS/3 ML VIAL SQ SCH ×3 (08:06→16:44)
[2016-07-06] MEDS: Insulin Human Regular 100 UNIT in 0.9 % Sodium Chloride 100 ML IV SCH (08:11)
[2016-07-06] MEDS: Nicotine 21 MG PATCH.TD24 TD SCH (08:11)
--- NOTE | 2016-07-06 09:36 | Cardiothoracic Progress Note ---
Date of Encounter: 07/06/16 Time of Encounter: 09:34 - Assessment and plan (1) Non-STEMI (non-ST elevated myocardial infarction) Current Visit: Yes Status: Inactive We will ambulate the patient today and hopefully get him off of oxygen. Hopefully, he can be discharged tomorrow. I cautioned him to quit smoking. He does have mild mental retardation and home oxygen might be dangerous. - Subjective Interval history: The patient has no complaints and is anxious to be discharged. Vital Signs, Last 4 Hours Temp Pulse Resp BP Pulse Ox 07/06/16 08:01 18 95 07/06/16 07:23 97.8 F 101 18 141/100 95 07/06/16 07:00 105 Oxgyen Flow Rate Oxygen Flow Rate (LPM) 1.5 Clinical Data, last 8 Hours Output, Urine Amount 400 Output, Urine Amount 700 Output, Urine Amount 200 Weight 07/04/16 07/05/16 07/06/16 23:59 23:59 23:59 Weight 92.7 kg 92.1 kg 88.3 kg Lungs are clear to percussion and auscultation. Heart is in a normal sinus rhythm. All incisions are healing well without signs of infection and the sternum is stable. The pacing wires were removed. - Labs 07/05/16 03:44 07/05/16 03:44 - Imaging Chest Xray: report reviewed, image reviewed - VTE Reasons for not Prescribing Prophylaxis: Not indicated-Anticoagulated or INR therapeutic Documentation of Mechanical Device: Graduated compression elastic hosiery Consult Discharge Plan - Plan Referrals: Mayelin Del Real CNP [Advanced Practice Nurse] - 07/12/16 10:30 am Trey Sawant MD [Partnered Physician] - 08/17/16 1:00 pm Jorge Chaidez DO [Primary Care Provider] - Leonardo Vasquez DO [Partnered Physician] - (SENT REQUEST ON 07-05-16 @ 0900)
--- NOTE | 2016-07-06 10:11 | Internal Med Progress Note ---
Date of Encounter: 07/06/16 Time of Encounter: 08:40 - Assessment and plan (1) Constipation Current Visit: Yes Status: Acute Assessment and plan: colace Mirlax . Senna 1 tablet DAILY , monitor Qualifiers: Constipation type: slow transit constipation Qualified Code(s): K59.01 - Slow transit constipation (2) Physical deconditioning Current Visit: Yes Status: Acute Assessment and plan: PT/OT . ambulate , may need home health on Discharge (3) CAD (coronary artery disease), [place] coronary artery Current Visit: Yes Status: Acute Assessment and plan: S/P Cabg, vital signs stable, wean off oxgen as tolerated . Qualifiers: [place] vs. transplanted heart: [place] heart Associated angina: with stable angina Qualified Code(s): I25.118 - Atherosclerotic heart disease of [place] coronary artery with other forms of angina pectoris (4) Diabetes mellitus type II, non insulin dependent Current Visit: Yes Status: Acute Assessment and plan: Continue medium dose SSI , consider adding oral agent ,possible will be issue with compliance with ISS (5) Atelectasis Current Visit: Yes Status: Acute - Time Spent With Patient Discussed with cardiothoracic team possible discharge next a.m. awaiting weaning off oxygen - Subjective Interval history: Patient is feeling better , Patient admitted with non-ST elevation myocardial infarction status post CABG3. Chest tubes were removed. Patient still need oxygen , ambulating with staff . - Constitutional Vitals: Temp Pulse Resp BP Pulse Ox 97.8 F 101 18 141/100 95 07/06/16 07:23 07/06/16 07:23 07/06/16 08:01 07/06/16 07:23 07/06/16 08:01 General appearance: Present: cooperative, pleasant, answers questions appropriately - Neck Neck exam general surgery: Present: supple, trachea midline. Absent: lymphadenopathy - Respiratory Respiratory exam: Present: decreased breath sounds. Absent: accessory muscle use, rales, rhonchi, wheezes - Cardiovascular Cardiovascular exam: Present: RRR, +S1, +S2. Absent: diastolic murmur, gallop, rubs, systolic murmur - GI/Abdominal GI/Abdominal exam: Present: normal bowel sounds, soft, no peritoneal signs. Absent: distended, tenderness - Extremities Exam Extremities exam: Present: warm, radial pulses palpable and symetrical. Absent : calf tenderness, cyanotic, pedal edema Internal Medicine: Result - Labs CBC & Chem 7: 07/05/16 03:44 07/05/16 03:44 - ABG Interpretation ABG results: ABG ABG pH 7.35 pH Units (7.32-7.45) 07/03/16 20:12 ABG pCO2 57 mmHg (35-45) H 07/03/16 20:12 ABG pO2 74 mmHg (85-104) L 07/03/16 20:12 ABG O2 Saturation 94 % (95-98) L 07/03/16 20:12 PT/INR, D-dimer PT 13.6 Seconds (9.4-12.1) H 07/04/16 02:45 - VTE Reasons for not Prescribing Prophylaxis: Not indicated-Anticoagulated or INR therapeutic Documentation of Mechanical Device: Graduated compression elastic hosiery Consult Discharge Plan - Plan Referrals: Mayelin Del Real, SHADY [Advanced Practice Nurse] - 07/12/16 10:30 am Trey Sawant MD [Partnered Physician] - 08/17/16 1:00 pm Jorge Chaidez DO [Primary Care Provider] - Leonardo Vasquez DO [Partnered Physician] - (SENT REQUEST ON 07-05-16 @ [id number])
[2016-07-06] MEDS: Thiamine (B-1) 100 MG TABLET PO SCH (11:24)
[2016-07-06] MEDS: *HR* GlipiZIDE 5 MG TABLET PO SCH (16:44)
[2016-07-06] MEDS: *HR* OxyCODONE/APAP 5/325 TABLET PO PRN (21:03)
[2016-07-07] MEDS: Ketorolac 15 MG/ML VIAL IVP SCH ×2 (00:05→05:20)
[2016-07-07 03:50] LABS: Basophils % 0.5 %; Eosinophils # 0.4 K/mcL (0.0-0.6); Eosinophils % 4.9 %; Hematocrit 37.7 % (37.5-50.1); Hemoglobin 13.6 g/dL (12.9-16.9); Immature Granulocytes % 0.3 % (0-4); Lymphocytes # 2.1 K/mcL (0.6-4.6); Mean Corpuscular HGB Conc 36.1 g/dL (31.6-35.5); Mean Corpuscular Hemoglobin 33.6 pg (28.0-33.3); Mean Corpuscular Volume 93.1 fL (83.0-100.0); Monocytes # 0.5 K/mcL (0.0-1.3); Monocytes % 6.5 %; Neutrophils # 4.8 K/mcL (1.6-8.9); Platelet Count 173 K/mcL (140-400); Red Blood Count 4.05 M/mcL (4.19-5.50); Red Cell Distribution Width 11.5 % (11.5-14.5); Segmented Neutrophils % 60.8 %
[2016-07-07 04:03] LABS: BUN/Creatinine Ratio 24 (6-26); Blood Urea Nitrogen 20 mg/dL (8-26); Calcium 9.3 mg/dL (8.6-10.8); Carbon Dioxide 26 mEq/L (19-29); Chloride 105 mEq/L (98-109); Glucose 220 mg/dL (70-99); Osmolality,Calculated 297 (280-300); Potassium 4.3 mEq/L (3.5-4.5); Sodium 139 mEq/L (136-145); eGFR For African Americans > 60 (> 60); eGFR For Non-African Americans > 60 (> 60)
[2016-07-07] MEDS: *HR* Heparin 5,000 UNIT/ML VIAL SQ SCH (05:20)
[2016-07-07] MEDS: Insulin LISPRO 300 UNITS/3 ML VIAL SQ SCH (07:49)
[2016-07-07] MEDS: Thiamine (B-1) 100 MG TABLET PO SCH (07:50)
[2016-07-07] MEDS: *HR* GlipiZIDE 5 MG TABLET PO SCH (07:50)
[2016-07-07] MEDS: Aspirin 81 MG TAB.CHEW PO SCH (07:50)
[2016-07-07] MEDS: Chlorhexidine Rinse 15 ML MOUTHWASH MM SCH (07:51)
[2016-07-07] MEDS: Nicotine 21 MG PATCH.TD24 TD SCH (07:51)
[2016-07-07] MEDS: Insulin Human Regular 100 UNIT in 0.9 % Sodium Chloride 100 ML IV SCH (10:35)
--- NOTE | 2016-07-07 11:16 | Discharge Summary ---
Date of Encounter: 07/07/16 Time of Encounter: 11:14 - Discharge Diagnosis (1) Non-STEMI (non-ST elevated myocardial infarction) Priority: Primary Status: Inactive - Discharge Medications Prescriptions: OxyCODONE/APAP 5/325 [Percocet 5/325 MG] 1 each PO Q4HR PRN #30 tablet PRN Reason: Severe Pain Aspirin 81 mg PO DAILY #60 tab.chew Atorvastatin [Lipitor] 40 mg PO HS #30 tablet Carvedilol [Coreg] 6.25 mg PO BIDWM #60 tablet GlipiZIDE [Glucotrol] 2.5 mg PO BIDWM #60 tablet Losartan [Cozaar] 50 mg PO DAILY #30 tablet Home Medications: Acetaminophen [Tylenol] 500 mg PO Q6HR PRN 06/25/16 [History] Aspirin 81 mg PO DAILY #60 tab.chew 07/07/16 [Rx] Atorvastatin [Lipitor] 40 mg PO HS #30 tablet 07/07/16 [Rx] Carvedilol [Coreg] 6.25 mg PO BIDWM #60 tablet 07/07/16 [Rx] GlipiZIDE [Glucotrol] 2.5 mg PO BIDWM #60 tablet 07/07/16 [Rx] Losartan [Cozaar] 50 mg PO DAILY #30 tablet 07/07/16 [Rx] OxyCODONE/APAP 5/325 [Percocet 5/325 MG] 1 each PO Q4HR PRN #30 tablet 07/07/16 [Rx] Allergies/Adverse Reactions: Allergies No Known Allergies Allergy (Verified 06/24/16 20:35) Date of admission: 06/24/16 23:16 Primary care physician: Jorge Chaidez DO Consults: 07/03/16 11:11 Consult to Cardiac Rehabilitation-Phase1 [CONS] Routine Comment: Reason for Consult: Post open heart Call Completed: Yes 06/24/16 23:49 Consult to Physician [CONS] Routine Consulting Provider: Arben Gudino Reason for Consult: AMI Call Completed: No 06/26/16 10:53 Consult to Cardiothoracic Surgery [CONS] Routine Consulting Provider: Cardiothoracic Surgery Nan Reason for Consult: cabg Call Completed: Yes Procedure(s) Performed: July 03, 2015. Coronary artery bypass grafting 3, utilizing his left internal mammary artery. Discharging clinician: Pawan Elmore Anticipated date of discharge: 07/07/16 - Patient Status Disposition: Home, Self-Care Condition: Fair Functional capacity at discharge: independent ambulation Overall status at discharge: patient is progressing back to baseline - Discharge Instructions Follow Up With: Mayelin Del Real CNP [Advanced Practice Nurse] - 07/12/16 10:30 am Trey Sawant MD [Partnered Physician] - 08/17/16 1:00 pm Joseph Frankel CNP [Advanced Practice Nurse] - 07/20/16 2:30 pm Jorge Chaidez DO [Primary Care Provider] - - Hospital Course Hospital course: Mr. Perez is a 41 year old male Patient is a 41-year-old gentleman who does have a history of mental retardation. He presented with an acute myocardial infarction with a troponin of 7.5. He had been having angina for many months. Cardiac catheterization revealed decreased left ventricular ejection fraction of 40% with triple-vessel disease. He was referred for open heart surgery. He had received Brilinta and this was stopped preoperatively. On July 03, 2016, my partner Dr. Sawant took the patient to the operating room for coronary artery bypass grafting 3, utilizing his left internal mammary artery. The patient tolerated this procedure well. On July 04 he was transferred to the floor. On July 05 his chest tubes were removed. Chest x-ray revealed no pneumothorax. Pacing wires were removed. The patient was ambulating without difficulty. The patient was discharged on July 07. At that time he was afebrile. All incisions were healing well without signs of infection. The sternum was stable. Lungs were clear to percussion and auscultation. His discharge medications are on the med rec. They include Percocet 5/325. He was given a one-week supply and he was postoperative. I did check the [place] automated Rx reporting system. Appropriate precautions were given. He was to return to his previous and regular diet. He was to avoid heavy lifting for a total of 3 months after surgery. He was to walk as much as possible. He was to follow-up with his primary care doctor as directed. He was to see Dr. Sawant in 4 weeks as directed. 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 He was to avoid driving for 1 month. He was to call sooner for any difficulties. - Time Spent with Patient Total time spent providing and/or coordinating discharge services: Physical Examination Vital Signs, Last 4 Hours Temp Pulse Resp BP Pulse Ox 07/07/16 09:52 79 07/07/16 08:25 18 95 07/07/16 07:14 98.5 F 87 18 127/94 95 Open Heart Registry Aspirin Cont/Prescribed at DC: Yes Beta Abhijit Cont/Prescribed at DC: Yes Statin Cont/Prescribed at DC: Yes MINE/ARB Cont/Prescribed at DC: Yes - VTE Reasons for not Prescribing Prophylaxis: Not indicated-Anticoagulated or INR therapeutic Documentation of Mechanical Device: Graduated compression elastic hosiery
[2016-07-07 11:26] VITALS: BP 125/85
[2016-07-07] MEDS ORDERED: FLU VACC QS2016-17 36MOS UP/PF 0.5 ML SYRINGE IM ONE (11:44)
--- NOTE | 2016-07-07 13:08 | Internal Med Progress Note ---
Date of Encounter: 07/07/16 Time of Encounter: 13:05 - Assessment and plan (1) NSTEMI (non-ST elevated myocardial infarction) Current Visit: Yes Status: Acute Assessment and plan: Status post CABG patient w/o chest pain. beta mauricio, aspirin, statin cath on 06/26 showed severe 3 vessel disease Follow cardiothoracic surgery instructions (2) Diabetes mellitus type II, non insulin dependent Current Visit: Yes Status: Acute Assessment and plan: Continue metformin and glipizide Prescriptions given by primary team/cardiotoxic surgery (3) Physical deconditioning Current Visit: Yes Status: Acute Assessment and plan: PT/OT . ambulate (4) Tobacco abuse disorder Current Visit: Yes Status: Chronic Assessment and plan: nicotine patch Smoking cessation counseling given for 5 minutes - Time Spent With Patient Greater than 35 minutes - Subjective Interval history: Denies any chest pain, short of breath, fevers, no chills, no abdominal pain or dysuria. No diarrhea - Constitutional Vitals: Temp Pulse Resp BP Pulse Ox 98.4 F 85 18 125/85 95 07/07/16 11:21 07/07/16 11:21 07/07/16 11:21 07/07/16 11:21 07/07/16 11:21 General appearance: Present: cooperative, pleasant, answers questions appropriately - Head Head exam: Present: atraumatic, normocephalic - Eye Eye exam: Present: PERRL, conjuntiva pink, sclera anicteric Pupils: Present: PERRL - Neck Neck exam general surgery: Present: supple, trachea midline. Absent: lymphadenopathy - Respiratory Respiratory exam: Present: decreased breath sounds, CTAB. Absent: accessory muscle use, rales, rhonchi, wheezes - Cardiovascular Cardiovascular exam: Present: RRR, +S1, +S2. Absent: diastolic murmur, gallop, rubs, systolic murmur Additional comments: Mid sternal surgical wound with no signs of infection - GI/Abdominal GI/Abdominal exam: Present: normal bowel sounds, soft, no peritoneal signs. Absent: distended, tenderness - Extremities Exam Extremities exam: Present: warm, radial pulses palpable and symetrical. Absent : calf tenderness, cyanotic, pedal edema - Neurological Exam Neurological exam: Present: CN II-XII intact, oriented X3, no focal deficits. Absent: pronater drift, facial droop, speech deficit - Skin Skin exam: Present: dry, intact Internal Medicine: Result - Labs CBC & Chem 7: 07/07/16 03:35 07/07/16 03:35 Labs: Short CBC 07/07/16 Range/Units 03:35 WBC 7.8 (4.3-11.1) K/mcL Hgb 13.6 (12.9-16.9) g/dL Hct 37.7 (37.5-50.1) % Plt Count 173 D (140-400) K/mcL Neutrophils # 4.8 (1.6-8.9) K/mcL BMP 07/07/16 03:35 Sodium 139 Potassium 4.3 Chloride 105 Carbon Dioxide 26 BUN 20 Creatinine 0.85 Glucose 220 H Calcium 9.3 - ABG Interpretation ABG results: ABG ABG pH 7.35 pH Units (7.32-7.45) 07/03/16 20:12 ABG pCO2 57 mmHg (35-45) H 07/03/16 20:12 ABG pO2 74 mmHg (85-104) L 07/03/16 20:12 ABG O2 Saturation 94 % (95-98) L 07/03/16 20:12 PT/INR, D-dimer PT 13.6 Seconds (9.4-12.1) H 07/04/16 02:45 - VTE Reasons for not Prescribing Prophylaxis: Not indicated-Anticoagulated or INR therapeutic Documentation of Mechanical Device: Graduated compression elastic hosiery Consult Discharge Plan - Plan Instructions: Metoprolol (By mouth), Lisinopril (By mouth), Oxycodone/ Acetaminophen (By mouth), Aspirin (By mouth), Simvastatin (By mouth), Metformin (By mouth), Coronary Artery Bypass Graft (DC), Diabetes Mellitus Type 2 in Adults (DC), Meal Planning with Diabetes Exchanges (DC) Additional Instructions: Follow-up appointments: If there is not an appointment listed below, please call your physician and schedule a follow-up appointment. If you have congestive heart failure and your symptoms return, make an appointment with your physician. Symptoms: If your condition changes or you experience any of the following symptoms, notify your physician immediately: Unusual or worsening pain, fever, persistent nausea and vomiting, bleeding, increase in swelling (especially in your legs), sudden weight gain, extreme dizziness, chest pain, increased drainage or redness from a wound or incision. Go to the emergency department if you experience a problem with breathing. Weights: If you have a history of swelling or shortness of breath, weigh yourself daily and notify your physician if you have a weight gain of two or more pounds in one day or 5 or more pounds in a week. If you experience any of the warning signs for stroke: Sudden numbness or weakness of the face, arm or leg; especially on one side of the body, sudden confusion, trouble speaking or understanding, sudden trouble seeing in one or both eyes, sudden trouble walking, dizziness, loss of balance or coordination, sudden sever headache with no cause; Call 911 or go to the emergency room. Stroke is a medical emergency. Some risk factors for stroke: Age, cigarette smoking, diabetes, excessive alcohol consumption, family history , high blood pressure, overweight, physical inactivity, prior stroke, heart attack, diagnosis of carotid artery stenosis or other artery disease. If you smoke, STOP: Smoking or tobacco use significantly increases your risk of heart and lung disease. Your chance of disease greatly increases if you continue to smoke. For more information, call the [place] tobacco quit line for smoking cessation 4- QUIT-NOW ( ) Referrals: Mayelin Del Real CNP [Advanced Practice Nurse] - 07/12/16 10:30 am Trey Sawant MD [Partnered Physician] - 08/17/16 1:00 pm Joseph Frankel CNP [Advanced Practice Nurse] - 07/20/16 2:30 pm Jorge Chaidez, [Primary Care Provider] - Prescriptions: OxyCODONE/APAP 5/325 [Percocet 5/325 MG] 1 each PO Q4HR PRN #30 tablet PRN Reason: Severe Pain Aspirin 81 mg PO DAILY #60 tab.chew Atorvastatin [Lipitor] 40 mg PO HS #30 tablet Carvedilol [Coreg] 6.25 mg PO BIDWM #60 tablet GlipiZIDE [Glucotrol] 2.5 mg PO BIDWM #60 tablet Losartan [Cozaar] 50 mg PO DAILY #30 tablet
== END 2016-07-07 13:15 | disposition home or self-care (01) | DRG 165 ==
LOC: SUATTDRO 23:16 → 2NENU 23:16 → ICNU 07-03 11:08 → 2NNU 07-04 15:59
PROVIDERS: ADMIT Family Medicine; ATTEND Internal Medicine